=== PATIENT | male | born 1995 | race American Indian/Alaskan Native ===

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

== ENCOUNTER 2019-11-24 10:17 | Emergency (ER) | payer SELFPAY ==
[2019-11-24] MEDS ORDERED: ZIPRASIDONE MESYLATE 20 MG VIAL IM STA (10:30)
--- NOTE | 2019-11-24 10:40 | Emergency Department Report ---
ED Altered Mental Status HPI - General Chief Complaint: Altered Mental Status Stated Complaint: AMS PUI?: No Time Seen by Provider: 11/24/19 10:30 Source: patient Mode of arrival: Wheelchair Limitations: Altered Mental Status - History of Present Illness Initial Comments: Chief complaint: Strange behavior This is a 24-year-old male with history of polysubstance abuse who presents with altered mental status for the past 2 days. He told his family members that he "wants to get help.". He has had bizarre behavior constantly for the past 2 days. He has walked in the middle of the street. He is walked outside without clothes. He keeps repeating commands from his training. He is not sleeping. He told his family members that he uses marijuana, "pills" and "lean". He lives with several family members including his aunt and uncle who are bedside as well as his mother. Patient is currently altered. He states that "I am fine.". He is dazed. He keeps his eyes closed. He is restless. He gives limited information. MD Complaint: altered mental status -: Gradual, days(s) (2) Severity: moderate Consistency of Symptoms: waxing and waning Context: drug abuse Associated Symptoms: other ("I'm fine.") - Related Data Previous Rx's Medication Instructions Recorded Last Taken Type Ketorolac [Toradol] 10 mg PO Q6H PRN #10 tablet 11/20/16 Unknown Rx Cephalexin [Keflex] 500 mg PO TID #30 capsule 11/27/16 Unknown Rx Gabapentin [Neurontin] 100 mg PO Q8HR #30 capsule 12/03/16 Unknown Rx Ketorolac [Toradol] 10 mg PO Q6H PRN #20 tablet 12/03/16 Unknown Rx Neomycin/Bacitracin/Polymyxinb 14.2 gm TP BID #1 tube 12/03/16 Unknown Rx [Neosporin Antibiotic Ointment] Allergies Allergy/AdvReac Type Severity Reaction Status Date / Time amoxicillin trihydrate Allergy Rash Verified 11/30/16 13:36 [From Augmentin] azithromycin [From Zithromax] Allergy Rash Verified 11/30/16 13:36 ibuprofen [From Motrin] Allergy Rash Verified 11/30/16 13:36 Penicillins Allergy Rash Verified 11/30/16 13:36 potassium clavulanate Allergy Rash Verified 11/30/16 13:36 [From Augmentin] ED Review of Systems ROS: Stated complaint: AMS Other details as noted in HPI Comment: Unobtainable due to pts medical conditions (altered mental status) ED Past Medical Hx - Past Medical History Previous Medical History?: No Hx Hypertension: No Hx CVA: No - Surgical History Past Surgical History?: No - Social History Smoking Status: Unknown if ever smoked Substance Use Type: Marijuana, Non Opiate Pain, Other ("lean") - Medications Home Medications: Home Medications Medication Instructions Recorded Confirmed Last Taken Type Ketorolac [Toradol] 10 mg PO Q6H PRN #10 tablet 11/20/16 Unknown Rx Cephalexin [Keflex] 500 mg PO TID #30 capsule 11/27/16 Unknown Rx Gabapentin [Neurontin] 100 mg PO Q8HR #30 capsule 12/03/16 Unknown Rx Ketorolac [Toradol] 10 mg PO Q6H PRN #20 tablet 12/03/16 Unknown Rx Neomycin/Bacitracin/Polymyxinb 14.2 gm TP BID #1 tube 12/03/16 Unknown Rx [Neosporin Antibiotic Ointment] ED Physical Exam - General Limitations: Altered Mental Status General appearance: alert, other (patient is restless, continually trying to get out of stretcher, keeps eyes closed, grabs his aunt's hand, grabs the examiner's hand) - Head Head exam: Present: atraumatic, normocephalic - ENT ENT exam: Present: mucous membranes moist - Neck Neck exam: Present: normal inspection, full ROM - Respiratory Respiratory exam: Present: normal lung sounds bilaterally. Absent: respiratory distress, wheezes, rales, rhonchi - Cardiovascular Cardiovascular Exam: Present: regular rate, normal rhythm, normal heart sounds. Absent: systolic murmur, diastolic murmur, rubs, gallop - GI/Abdominal GI/Abdominal exam: Present: soft, normal bowel sounds. Absent: distended, tenderness, guarding, rebound - Rectal Rectal exam: Present: deferred - Extremities Exam Extremities exam: Present: normal inspection - Neurological Exam Neurological exam: Present: alert, other (oriented to name) - Psychiatric Psychiatric exam: Present: other (labile mood) - Skin Skin exam: Present: warm, dry, intact, normal color. Absent: rash ED Course Vital Signs 11/24/19 11/24/19 11/24/19 11:48 12:14 15:02 Temperature 97.2 F L Pulse Rate 82 82 Respiratory 18 15 18 Rate Blood Pressure 131/80 130/70 [Right] O2 Sat by Pulse 100 97 97 Oximetry 11/24/19 11/24/19 11/25/19 19:51 20:26 00:49 Temperature 97.4 F L 97.4 F L 97.4 F L Pulse Rate 80 70 83 Respiratory 18 18 18 Rate Blood Pressure 144/83 119/55 140/80 [Right] O2 Sat by Pulse 100 99 100 Oximetry 11/25/19 11/26/19 08:43 02:25 Temperature 98.0 F 97.8 F Pulse Rate 80 66 Respiratory 20 16 Rate Blood Pressure 129/74 124/81 [Right] O2 Sat by Pulse 100 98 Oximetry - Lab Data Result diagrams: 11/25/19 20:50 11/25/19 20:50 Lab Results 11/24/19 11/24/19 11/24/19 Range/Units 10:39 10:39 10:39 WBC 16.1 H (4.5-11.0) K/mm3 RBC 4.45 (3.65-5.03) M/mm3 Hgb 13.1 (11.8-15.2) gm/dl Hct 41.4 (35.5-45.6) % MCV 93 (84-94) fl MCH 30 (28-32) pg MCHC 32 (32-34) % RDW 13.4 (13.2-15.2) % Plt Count 163 (140-440) K/mm3 Lymph % (Auto) 6.8 L (13.4-35.0) % Person % (Auto) 8.5 H (0.0-7.3) % Eos % (Auto) 0.3 (0.0-4.3) % Baso % (Auto) 0.1 (0.0-1.8) % Lymph # 1.1 L (1.2-5.4) K/mm3 Person # 1.4 H (0.0-0.8) K/mm3 Eos # 0.0 (0.0-0.4) K/mm3 Baso # 0.0 (0.0-0.1) K/mm3 Seg Neutrophils % 84.3 H (40.0-70.0) % Seg Neutrophils # 13.5 H (1.8-7.7) K/mm3 PT (12.2-14.9) Sec. INR (0.87-1.13) VBG pH (7.320-7.420) Sodium 132 L (137-145) mmol/L Potassium 4.0 (3.6-5.0) mmol/L Chloride 94.9 L (98-107) mmol/L Carbon Dioxide 24 (22-30) mmol/L Anion Gap 17 mmol/L BUN 12 (9-20) mg/dL Creatinine 1.0 (0.8-1.5) mg/dL Estimated GFR > 60 ml/min BUN/Creatinine Ratio 12 % Glucose 84 (75-100) mg/dL Lactic Acid (0.7-2.0) mmol/L Calcium 9.5 (8.4-10.2) mg/dL Total Bilirubin 0.80 (0.1-1.2) mg/dL Direct Bilirubin (0-0.2) mg/dL Indirect Bilirubin mg/dL AST 33 (5-40) units/L ALT 16 (7-56) units/L Alkaline Phosphatase 63 (35-129) units/L Total Creatine Kinase (55-170) units/L CK-MB (CK-2) (0.0-4.0) ng/mL CK-MB (CK-2) Rel Index (0-4) Total Protein 8.0 (6.3-8.2) g/dL Albumin 4.5 (3.9-5) g/dL Albumin/Globulin Ratio 1.3 % Urine Color (Yellow) Urine Turbidity (Clear) Urine pH (5.0-7.0) Ur Specific Leonardo (1.003-1.030) Urine Protein (Negative) mg/dL Urine Glucose (UA) (Negative) mg/dL Urine Ketones (Negative) mg/dL Urine Blood (Negative) Urine Nitrite (Negative) Urine Bilirubin (Negative) Urine Urobilinogen (<2.0) mg/dL Ur Leukocyte Esterase (Negative) Urine WBC (Auto) (0.0-6.0) /HPF Urine RBC (Auto) (0.0-6.0) /HPF U Epithel Cells (Auto) (0-13.0) /HPF Urine Mucus /HPF Salicylates < 0.3 L (2.8-20.0) mg/dL Urine Opiates Screen Urine Methadone Screen Acetaminophen (10.0-30.0) ug/mL Ur Barbiturates Screen Ur Phencyclidine Scrn Ur Amphetamines Screen U Benzodiazepines Scrn Urine Cocaine Screen U Marijuana (THC) Screen Drugs of Abuse Note Plasma/Serum Alcohol (0-0.07) % 11/24/19 11/24/19 11/24/19 Range/Units 10:39 10:39 16:30 WBC (4.5-11.0) K/mm3 RBC (3.65-5.03) M/mm3 Hgb (11.8-15.2) gm/dl Hct (35.5-45.6) % MCV (84-94) fl MCH (28-32) pg MCHC (32-34) % RDW (13.2-15.2) % Plt Count (140-440) K/mm3 Lymph % (Auto) (13.4-35.0) % Person % (Auto) (0.0-7.3) % Eos % (Auto) (0.0-4.3) % Baso % (Auto) (0.0-1.8) % Lymph # (1.2-5.4) K/mm3 Person # (0.0-0.8) K/mm3 Eos # (0.0-0.4) K/mm3 Baso # (0.0-0.1) K/mm3 Seg Neutrophils % (40.0-70.0) % Seg Neutrophils # (1.8-7.7) K/mm3 PT (12.2-14.9) Sec. INR (0.87-1.13) VBG pH (7.320-7.420) Sodium (137-145) mmol/L Potassium (3.6-5.0) mmol/L Chloride (98-107) mmol/L Carbon Dioxide (22-30) mmol/L Anion Gap mmol/L BUN (9-20) mg/dL Creatinine (0.8-1.5) mg/dL Estimated GFR ml/min BUN/Creatinine Ratio % Glucose (75-100) mg/dL Lactic Acid (0.7-2.0) mmol/L Calcium (8.4-10.2) mg/dL Total Bilirubin (0.1-1.2) mg/dL Direct Bilirubin (0-0.2) mg/dL Indirect Bilirubin mg/dL AST (5-40) units/L ALT (7-56) units/L Alkaline Phosphatase (35-129) units/L Total Creatine Kinase (55-170) units/L CK-MB (CK-2) (0.0-4.0) ng/mL CK-MB (CK-2) Rel Index (0-4) Total Protein (6.3-8.2) g/dL Albumin (3.9-5) g/dL Albumin/Globulin Ratio % Urine Color Yellow (Yellow) Urine Turbidity Clear (Clear) Urine pH 5.0 (5.0-7.0) Ur Specific Leonardo 1.017 (1.003-1.030) Urine Protein <15 mg/dl (Negative) mg/dL Urine Glucose (UA) Neg (Negative) mg/dL Urine Ketones 80 (Negative) mg/dL Urine Blood Neg (Negative) Urine Nitrite Neg (Negative) Urine Bilirubin Neg (Negative) Urine Urobilinogen 2.0 (<2.0) mg/dL Ur Leukocyte Esterase Mod (Negative) Urine WBC (Auto) 100.0 H (0.0-6.0) /HPF Urine RBC (Auto) 3.0 (0.0-6.0) /HPF U Epithel Cells (Auto) < 1.0 (0-13.0) /HPF Urine Mucus 1+ /HPF Salicylates (2.8-20.0) mg/dL Urine Opiates Screen Urine Methadone Screen Acetaminophen 5.0 L (10.0-30.0) ug/mL Ur Barbiturates Screen Ur Phencyclidine Scrn Ur Amphetamines Screen U Benzodiazepines Scrn Urine Cocaine Screen U Marijuana (THC) Screen Drugs of Abuse Note Plasma/Serum Alcohol < 0.01 (0-0.07) % 11/24/19 11/25/19 11/25/19 Range/Units 16:30 20:50 20:50 WBC 5.7 (4.5-11.0) K/mm3 RBC 4.19 (3.65-5.03) M/mm3 Hgb 12.6 (11.8-15.2) gm/dl Hct 37.6 (35.5-45.6) % MCV 90 (84-94) fl MCH 30 (28-32) pg MCHC 34 (32-34) % RDW 12.8 L (13.2-15.2) % Plt Count 169 (140-440) K/mm3 Lymph % (Auto) 19.3 (13.4-35.0) % Person % (Auto) 9.4 H (0.0-7.3) % Eos % (Auto) 1.6 (0.0-4.3) % Baso % (Auto) 0.8 (0.0-1.8) % Lymph # 1.1 L (1.2-5.4) K/mm3 Person # 0.5 (0.0-0.8) K/mm3 Eos # 0.1 (0.0-0.4) K/mm3 Baso # 0.0 (0.0-0.1) K/mm3 Seg Neutrophils % 68.9 (40.0-70.0) % Seg Neutrophils # 4.0 (1.8-7.7) K/mm3 PT 14.9 (12.2-14.9) Sec. INR 1.15 H (0.87-1.13) VBG pH (7.320-7.420) Sodium (137-145) mmol/L Potassium (3.6-5.0) mmol/L Chloride (98-107) mmol/L Carbon Dioxide (22-30) mmol/L Anion Gap mmol/L BUN (9-20) mg/dL Creatinine (0.8-1.5) mg/dL Estimated GFR ml/min BUN/Creatinine Ratio % Glucose (75-100) mg/dL Lactic Acid (0.7-2.0) mmol/L Calcium (8.4-10.2) mg/dL Total Bilirubin (0.1-1.2) mg/dL Direct Bilirubin (0-0.2) mg/dL Indirect Bilirubin mg/dL AST (5-40) units/L ALT (7-56) units/L Alkaline Phosphatase (35-129) units/L Total Creatine Kinase (55-170) units/L CK-MB (CK-2) (0.0-4.0) ng/mL CK-MB (CK-2) Rel Index (0-4) Total Protein (6.3-8.2) g/dL Albumin (3.9-5) g/dL Albumin/Globulin Ratio % Urine Color (Yellow) Urine Turbidity (Clear) Urine pH (5.0-7.0) Ur Specific Leonardo (1.003-1.030) Urine Protein (Negative) mg/dL Urine Glucose (UA) (Negative) mg/dL Urine Ketones (Negative) mg/dL Urine Blood (Negative) Urine Nitrite (Negative) Urine Bilirubin (Negative) Urine Urobilinogen (<2.0) mg/dL Ur Leukocyte Esterase (Negative) Urine WBC (Auto) (0.0-6.0) /HPF Urine RBC (Auto) (0.0-6.0) /HPF U Epithel Cells (Auto) (0-13.0) /HPF Urine Mucus /HPF Salicylates (2.8-20.0) mg/dL Urine Opiates Screen Presumptive negative Urine Methadone Screen Presumptive negative Acetaminophen (10.0-30.0) ug/mL Ur Barbiturates Screen Presumptive negative Ur Phencyclidine Scrn Presumptive negative Ur Amphetamines Screen Presumptive negative U Benzodiazepines Scrn Presumptive negative Urine Cocaine Screen Presumptive negative U Marijuana (THC) Screen Presumptive positive Drugs of Abuse Note Disclamer Plasma/Serum Alcohol (0-0.07) % 11/25/19 11/25/19 11/25/19 Range/Units 20:50 20:50 20:50 WBC (4.5-11.0) K/mm3 RBC (3.65-5.03) M/mm3 Hgb (11.8-15.2) gm/dl Hct (35.5-45.6) % MCV (84-94) fl MCH (28-32) pg MCHC (32-34) % RDW (13.2-15.2) % Plt Count (140-440) K/mm3 Lymph % (Auto) (13.4-35.0) % Person % (Auto) (0.0-7.3) % Eos % (Auto) (0.0-4.3) % Baso % (Auto) (0.0-1.8) % Lymph # (1.2-5.4) K/mm3 Person # (0.0-0.8) K/mm3 Eos # (0.0-0.4) K/mm3 Baso # (0.0-0.1) K/mm3 Seg Neutrophils % (40.0-70.0) % Seg Neutrophils # (1.8-7.7) K/mm3 PT (12.2-14.9) Sec. INR (0.87-1.13) VBG pH 7.369 (7.320-7.420) Sodium 137 (137-145) mmol/L Potassium 3.6 (3.6-5.0) mmol/L Chloride 99.5 (98-107) mmol/L Carbon Dioxide 25 (22-30) mmol/L Anion Gap 16 mmol/L BUN 9 (9-20) mg/dL Creatinine 0.8 (0.8-1.5) mg/dL Estimated GFR > 60 ml/min BUN/Creatinine Ratio 11 % Glucose 89 (75-100) mg/dL Lactic Acid 0.90 (0.7-2.0) mmol/L Calcium 9.1 (8.4-10.2) mg/dL Total Bilirubin 0.50 (0.1-1.2) mg/dL Direct Bilirubin < 0.2 (0-0.2) mg/dL Indirect Bilirubin 0.3 mg/dL AST 24 (5-40) units/L ALT 14 (7-56) units/L Alkaline Phosphatase 51 (35-129) units/L Total Creatine Kinase 655 H (55-170) units/L CK-MB (CK-2) 5.7 H (0.0-4.0) ng/mL CK-MB (CK-2) Rel Index 0.8 (0-4) Total Protein 7.8 (6.3-8.2) g/dL Albumin 4.1 (3.9-5) g/dL Albumin/Globulin Ratio 1.1 % Urine Color (Yellow) Urine Turbidity (Clear) Urine pH (5.0-7.0) Ur Specific Leonardo (1.003-1.030) Urine Protein (Negative) mg/dL Urine Glucose (UA) (Negative) mg/dL Urine Ketones (Negative) mg/dL Urine Blood (Negative) Urine Nitrite (Negative) Urine Bilirubin (Negative) Urine Urobilinogen (<2.0) mg/dL Ur Leukocyte Esterase (Negative) Urine WBC (Auto) (0.0-6.0) /HPF Urine RBC (Auto) (0.0-6.0) /HPF U Epithel Cells (Auto) (0-13.0) /HPF Urine Mucus /HPF Salicylates (2.8-20.0) mg/dL Urine Opiates Screen Urine Methadone Screen Acetaminophen (10.0-30.0) ug/mL Ur Barbiturates Screen Ur Phencyclidine Scrn Ur Amphetamines Screen U Benzodiazepines Scrn Urine Cocaine Screen U Marijuana (THC) Screen Drugs of Abuse Note Plasma/Serum Alcohol (0-0.07) % - Medical Decision Making Altered mental status: Current consideration -acute intoxication of illicit drugs Due to slightly decreased level of consciousness and erratic behavior, I do suspect polysubstance abuse in lieu of intracranial process such as trauma or neoplasm. I do not suspect acute psychiatric process such as schizophrenia or bipolar disorder. Patient's level consciousness indicates that patient has taken a sedative agent. Patient required chemical restraint for his safety and the safety of others. He received 10 mg IM Geodon for chemical restraint. I reevaluated patient after he awakened from chemical sedation. He states that "I feel much better. I just want to get out of here." He stated that he smoked a few cigarettes. He otherwise he will not admit to substance abuse. I do not suspect trauma or psychiatric mental illness. Awaiting psychiatric consultation for further treatment and stabilization. I reviewed labs. UDS + for marijuana. Nonspecific leukocytosis without fever or SIRS. asymptomatic pyuria on UA. He denies dysuria or urethral discharge. I will treat for UTI with nitrofurantoin. He is medically clear for psychiatric care. Currently patient is calm, cooperative. He is answering questions appropriately. I reevaluated Lauro on 11/26/2019 3:33 PM. I have reviewed CT head results. WBC is now normal. CT head without acute process. Patient is alert and oriented. He is hyperactive. He is dancing around room. He has labile affect. He is medically clear for psychiatric care. DDx: drug induced psychosis, schizophrenia Critical care attestation.: If time is entered above; I have spent that time in minutes in the direct care of this critically ill patient, excluding procedure time. ED Disposition Clinical Impression: Drug intoxication with delirium, Polysubstance abuse Condition: Stable Referrals: PRIMARY CARE, [Primary Care Provider] - 3-5 Days
[2019-11-24] MEDS ORDERED: WATER FOR INJ Sterile (PF) 10 ML ONE (10:52)
[2019-11-24 10:56] LABS: Basophils % (Auto) 0.1 % (0.0-1.8); Eosinophils % (Auto) 0.3 % (0.0-4.3); Hematocrit 41.4 % (35.5-45.6); Hemoglobin 13.1 gm/dl (11.8-15.2); Lymphocytes # (Auto) 1.1 K/mm3 (1.2-5.4); Lymphocytes % (Auto) 6.8 % (13.4-35.0); Mean Corpuscular HGB Conc 32 % (32-34); Mean Corpuscular Volume 93 fl (84-94); Monocytes # (Auto) 1.4 K/mm3 (0.0-0.8); Monocytes % (Auto) 8.5 % (0.0-7.3); Platelet Count 163 K/mm3 (140-440); Red Blood Count 4.45 M/mm3 (3.65-5.03); Red Cell Distribution Width 13.4 % (13.2-15.2)
[2019-11-24 11:17] LABS: Alanine Aminotransferase 16 units/L (7-56); Albumin 4.5 g/dL (3.9-5); BUN/Creatinine Ratio 12; Blood Urea Nitrogen 12 mg/dL (9-20); Calcium 9.5 mg/dL (8.4-10.2); Hemolysis Index 32
[2019-11-24 17:54] LABS: Bilirubin,Urine NEG (Negative); Blood,Urine NEG (Negative); Color,Urine Yellow (Yellow); Mucus,Urine 1+ /HPF; Protein,Urine <15 mg/dL mg/dL (Negative)
[2019-11-24 17:56] LABS: Amphetamine Screen,Urine PRESUMPTIVE NEGATIVE; Benzodiazepines Screen,Urine PRESUMPTIVE NEGATIVE; Cannabinoid Screen,Urine PRESUMPTIVE POSITIVE; Cocaine Screen,Urine PRESUMPTIVE NEGATIVE; Methadone Screen,Urine PRESUMPTIVE NEGATIVE; Opiate Screen,Urine PRESUMPTIVE NEGATIVE
[2019-11-24] MEDS ORDERED: NICOTINE 14 MG/24 HR PATCH TD ONE (18:00)
[2019-11-24] MEDS ORDERED: SODIUM CHLORIDE 0.9% 1000 ML 1,000 ML IV ONE (20:14)
[2019-11-24] MEDS: NITROFURANTOIN MONOHYD/M-CRYST 100 MG CAP PO SCH ×2 (20:45→21:32)
[2019-11-24] MEDS ORDERED: D5W/0.9% NACL 1,000 ML IV SCH ×2 (21:00)
[2019-11-25] MEDS: NITROFURANTOIN MONOHYD/M-CRYST 100 MG CAP PO SCH (09:41)
--- NOTE | 2019-11-25 10:59 | Consultation ---
History of Present Illness - Reason for Consult Consult date: 11/25/19 Reason for consult: MHE Requesting physician: MARCO PLASENCIA - Chief Complaint Chief complaint: AMS - History of Present Psychiatric Illness Per ED Provider: This is a 24-year-old male with history of polysubstance abuse who presents with altered mental status for the past 2 days. He told his family members that he "wants to get help.". He has had bizarre behavior constantly for the past 2 days. He has walked in the middle of the street. He is walked outside without clothes. He keeps repeating commands from his training. He is not sleeping. He told his family members that he uses marijuana, "pills" and "lean". He lives with several family members including his aunt and uncle who are bedside as well as his mother. Patient is currently altered. He states that "I am fine.". He is dazed. He keeps his eyes closed. He is restless. He gives limited information. Per MHA: Pt is a 24 year old AA male; Per triage note, "Pt. presents via pr ivate auto with family for suspected drug overdose. Pt. suspected to have smoked "something" and taken "lean." Pt. altered and uncooperative in triage. Pt. eyes closed. Pt resides with mother, uncle and aunt.Pt reported to this concrete bucket hooker THC use (regularly); family and pt reported to ED provider using, "lean, some pills" and THC. Family reports that the pt's behaviors have been abnormal the past few days ("Zombie state," acting bizarrely, wandering from the house placing himself in danger; family found pt, disoriented/disorganized thoughts). Family reports that the pt usually smokes weed, "like normal, and is just calm." Family reports pt did not graduate from high school or finish his program and has not been able to hold a steady job; family reports most likely due to the drug use. Pt denies any thoughts or plans to harm others. Family reports that the pt has made no statements or self-harm or desire to and has made no gestures intending to harm self (past or present). Pt denies any thoughts or plans to harm others. Pt was irritable and cursing during assessment; however, pt was not making any threats to harm others. Pt is usually more cooperative and easily e ngages with others. Pt is displaying evidence of thought disorder; pt told this concrete bucket hooker his name and date of . Pt could not answer his age, the current month or who the President is. (Unable to assess if the pt is choosing not to answer as he seems irritable and angry wanting to go home or if he does not know the correct answer as he appears to doze off and on and is disoriented). Pt has poor concentration, poor attention and poor memory. Pt has loud, slurred speech.Family reports that the pt has no mental health history (treatment or diagnosis)however, mother reported that the pt was on a 504 plan for ADHD in high school.. Mother reports that there is no family history or depression, bipolar or schizophrenia. PSYCH HPI Attempt was made at 9:30 AM, nurse says pt was taken to CT, I returned at noon to evaluate pt and nurse informed me patient was discharged by ER Provider. PAST PSYCHIATRIC HISTORY Diagnoses: Suicide attempts or Self-harm behavior: Prior psychiatric hospitalizations: Substance Abuse history: Previous psychiatric medications tried: Outpatient treatment: PAST MEDICAL HISTORY: Family Psychiatric History: None reported or documented SOCIAL HISTORY not available RECOMMENDATIONS Pt was discharged Medications and Allergies Allergies Allergy/AdvReac Type Severity Reaction Status Date / Time amoxicillin trihydrate Allergy Rash Verified 11/30/16 13:36 [From Augmentin] azithromycin [From Zithromax] Allergy Rash Verified 11/30/16 13:36 ibuprofen [From Motrin] Allergy Rash Verified 11/30/16 13:36 Penicillins Allergy Rash Verified 11/30/16 13:36 potassium clavulanate Allergy Rash Verified 11/30/16 13:36 [From Augmentin] Home Medications Medication Instructions Recorded Confirmed Last Taken Type Ketorolac [Toradol] 10 mg PO Q6H PRN #10 tablet 11/20/16 Unknown Rx Cephalexin [Keflex] 500 mg PO TID #30 capsule 11/27/16 Unknown Rx Gabapentin [Neurontin] 100 mg PO Q8HR #30 capsule 12/03/16 Unknown Rx Ketorolac [Toradol] 10 mg PO Q6H PRN #20 tablet 12/03/16 Unknown Rx Neomycin/Bacitracin/Polymyxinb 14.2 gm TP BID #1 tube 12/03/16 Unknown Rx [Neosporin Antibiotic Ointment] Active Meds: Active Medications Dextrose/Sodium Chloride (D5ns) 1,000 mls @ 999 mls/hr IV DIRECT EDVIN Last Admin: 11/24/19 22:35 Dose: 999 mls/hr Documented by: Dextrose/Sodium Chloride (D5ns) 1,000 mls @ 999 mls/hr IV DIRECT EDVIN Nitrofurantoin Macrocrystals (Macrobid) 100 mg PO BID EDVIN Last Admin: 11/25/19 09:41 Dose: 100 mg Documented by: Mental Status Exam - Vital signs Last Vital Signs Temp 98.0 F 11/25/19 08:43 Pulse 80 11/25/19 08:43 Resp 20 11/25/19 08:43 BP 129/74 11/25/19 08:43 Pulse Ox 100 11/25/19 08:43 Results Result Diagrams: 11/24/19 10:39 11/24/19 10:39 Abnormal lab results 11/24/19 11/24/19 11/24/19 Range/Units 10:39 10:39 10:39 WBC 16.1 H (4.5-11.0) K/mm3 Lymph % (Auto) 6.8 L (13.4-35.0) % [place] % (Auto) 8.5 H (0.0-7.3) % Lymph # 1.1 L (1.2-5.4) K/mm3 [place] # 1.4 H (0.0-0.8) K/mm3 Seg Neutrophils % 84.3 H (40.0-70.0) % Seg Neutrophils # 13.5 H (1.8-7.7) K/mm3 Sodium 132 L (137-145) mmol/L Chloride 94.9 L (98-107) mmol/L Urine WBC (Auto) (0.0-6.0) /HPF Salicylates < 0.3 L (2.8-20.0) mg/dL Acetaminophen (10.0-30.0) ug/mL 11/24/19 11/24/19 Range/Units 10:39 16:30 WBC (4.5-11.0) K/mm3 Lymph % (Auto) (13.4-35.0) % [place] % (Auto) (0.0-7.3) % Lymph # (1.2-5.4) K/mm3 [place] # (0.0-0.8) K/mm3 Seg Neutrophils % (40.0-70.0) % Seg Neutrophils # (1.8-7.7) K/mm3 Sodium (137-145) mmol/L Chloride (98-107) mmol/L Urine WBC (Auto) 100.0 H (0.0-6.0) /HPF Salicylates (2.8-20.0) mg/dL Acetaminophen 5.0 L (10.0-30.0) ug/mL All other labs normal.
[2019-11-25] MEDS ORDERED: ZIPRASIDONE MESYLATE 20 MG VIAL IM ONE (18:55)
[2019-11-25] MEDS ORDERED: SODIUM CHLORIDE 0.9% 500 ML 500 ML IV ONE (18:56)
[2019-11-25] MEDS ORDERED: LORazepam 2 MG/ML VIAL IM ONE (19:01)
--- NOTE | 2019-11-25 19:05 | Emergency Department Report ---
Blank Doc - Documentation Documentation: This patient was brought to my attention by the nurse. He apparently has an ex cited delirium. Review of his previous database indicates he has an elevated white blood cell count and a UTI. I see that he was placed on Macrobid. I do not see that he had a prior psychiatric history. Apparently the mental health provider accidentally infused him with a another patient after he was moved to another room. The nurse informs me that the mental health consult cannot be done until tomorrow. He also informed me that the one on this patient's record is indeed on another patient. I did examine the patient. He is standing up at the door in seclusion. He essentially making crowing noises and has removed his shirt. He obviously does have an excited delirium. His drug screen was only positive for marijuana. Diagnostic impression Excited delirium Leukocytosis UTI Plan Sepsis screening. Chemical sedation. Since the patient apparently is having a new onset psychosis, he does have indications for CT imaging of his head. This is ordered as well. He is not medically clear at this juncture. I will execute a 1013.
--- NOTE | 2019-11-25 21:04 | XRay Report ---
CHEST 1 VIEW, 11/25/2019 8:31 PM CLINICAL INFORMATION/INDICATION: Shortness of breath COMPARISON: None FINDINGS: SUPPORT DEVICES: None. HEART: The cardiac silhouette is normal in size. LUNGS/PLEURA: The lungs are clear of focal airspace disease or significant pleural effusion. ADDITIONAL FINDINGS: No additional acute findings. IMPRESSION: 1. No evidence of acute cardiopulmonary process. Signer Name: Lina Wilcox MD Signed: 11/25/2019 8:59 PM Workstation Name: [id number]
[2019-11-25 21:06] LABS: Basophils % (Auto) 0.8 % (0.0-1.8); Eosinophils # (Auto) 0.1 K/mm3 (0.0-0.4); Eosinophils % (Auto) 1.6 % (0.0-4.3); Hematocrit 37.6 % (35.5-45.6); Hemoglobin 12.6 gm/dl (11.8-15.2); Lymphocytes # (Auto) 1.1 K/mm3 (1.2-5.4); Lymphocytes % (Auto) 19.3 % (13.4-35.0); Mean Corpuscular HGB Conc 34 % (32-34); Mean Corpuscular Volume 90 fl (84-94); Monocytes # (Auto) 0.5 K/mm3 (0.0-0.8); Monocytes % (Auto) 9.4 % (0.0-7.3); Platelet Count 169 K/mm3 (140-440); Red Blood Count 4.19 M/mm3 (3.65-5.03); Red Cell Distribution Width 12.8 % (13.2-15.2)
[2019-11-25 21:16] LABS: INR 1.15 (0.87-1.13)
[2019-11-25 21:25] LABS: Creatine Kinase MB 5.7 ng/mL (0.0-4.0)
[2019-11-25 21:26] LABS: Alanine Aminotransferase 14 units/L (7-56); Albumin 4.1 g/dL (3.9-5); BUN/Creatinine Ratio 11; Blood Urea Nitrogen 9 mg/dL (9-20); Calcium 9.1 mg/dL (8.4-10.2); Hemolysis Index 6
[2019-11-25 21:34] LABS: Bilirubin,Direct < 0.2 mg/dL (0-0.2)
[2019-11-26] MEDS: NITROFURANTOIN MONOHYD/M-CRYST 100 MG CAP PO SCH ×2 (05:33→13:37)
--- NOTE | 2019-11-26 05:41 | Cat Scan Report ---
CT HEAD WITHOUT CONTRAST INDICATION : Altered mental status. TECHNIQUE: Axial, coronal and sagittal CT imaging was performed from the skull apex through the skul l base without contrast. All CT scans at this location are performed using CT dose reduction for ALA RA by means of automated exposure control. COMPARISON: None available. FINDINGS: PARENCHYMA: No mass, midline shift, hemorrhage, extraaxial collection or acute territorial infarctio n. VENTRICLES: Symmetric and normal in size. SOFT TISSUES: No significant abnormality of the included soft tissues/orbits. BONES: No acute osseous abnormality. SINUSES: No significant abnormality. ADDITIONAL FINDINGS: None. IMPRESSION: 1. No acute intracranial abnormality. Signer Name: Graham Serrato MD Signed: 11/26/2019 5:37 AM Workstation Name: [id number]
--- NOTE | 2019-11-26 12:16 | Consultation ---
History of Present Illness - Reason for Consult Consult date: 11/26/19 Reason for consult: MHE Requesting physician: MARCO PLASENCIA - Chief Complaint Chief complaint: AMS - History of Present Psychiatric Illness Per ED Provider: This is a 24-year-old male with history of polysubstance abuse who presents with altered mental status for the past 2 days. He told his family members that he "wants to get help.". He has had bizarre behavior constantly for the past 2 days. He has walked in the middle of the street. He is walked outside without clothes. He keeps repeating commands from his training. He is not sleeping. He told his family members that he uses marijuana, "pills" and "lean". He lives with several family members including his aunt and uncle who are bedside as well as his mother. Patient is currently altered. He states that "I am fine.". He is dazed. He keeps his eyes closed. He is restless. He gives limited information. Per MHA: Pt is a 24 year old AA male; Per triage note, "Pt. presents via pr ivate auto with family for suspected drug overdose. Pt. suspected to have smoked "something" and taken "lean." Pt. altered and uncooperative in triage. Pt. eyes closed. Pt resides with mother, uncle and aunt.Pt reported to this associate manager THC use (regularly); family and pt reported to ED provider using, "lean, some pills" and THC. Family reports that the pt's behaviors have been abnormal the past few days ("Zombie state," acting bizarrely, wandering from the house placing himself in danger; family found pt, disoriented/disorganized thoughts). Family reports that the pt usually smokes weed, "like normal, and is just calm." Family reports pt did not graduate from high school or finish his program and has not been able to hold a steady job; family reports most likely due to the drug use. Pt denies any thoughts or plans to harm others. Family reports that the pt has made no statements or self-harm or desire to and has made no gestures intending to harm self (past or present). Pt denies any thoughts or plans to harm others. Pt was irritable and cursing during assessment; however, pt was not making any threats to harm others. Pt is usually more cooperative and easily e ngages with others. Pt is displaying evidence of thought disorder; pt told this associate manager his name and date of . Pt could not answer his age, the current month or who the President is. (Unable to assess if the pt is choosing not to answer as he seems irritable and angry wanting to go home or if he does not know the correct answer as he appears to doze off and on and is disoriented). Pt has poor concentration, poor attention and poor memory. Pt has loud, slurred speech.Family reports that the pt has no mental health history (treatment or diagnosis)however, mother reported that the pt was on a 504 plan for ADHD in high school.. Mother reports that there is no family history or depression, bipolar or schizophrenia. PSYCH HPI Patient is a 24-year-old -Romanian male with no significant past psychiatric history, presented to ER for abnormal behavior. Patient seen in isolation today and attempt was made to interview patient patient responded to his name but became selectively mute to further questions making hand gestures with 3 fingers. Security said hang gestures familiar with gang like interpretation for "blood" PAST PSYCHIATRIC HISTORY Diagnoses: unknown Suicide attempts or Self-harm behavior: unknown Prior psychiatric hospitalizations: none reported Substance Abuse history: Deborah Previous psychiatric medications tried: None reported Outpatient treatment: none PAST MEDICAL HISTORY: none reported Family Psychiatric History: None reported or documented SOCIAL HISTORY Marital Status: single Living Arrangements: with family Employment Status: unknown Access to guns/weapons: none reported Education: unknown History of Abuse: unknown Legal History: unknown REVIEW OF SYSTEMS ROS cannot be reliably obtained from the patient due to his AMS MENTAL STATUS EXAMINATION General Appearance and Behavior: Age appropriate, good hygiene, poor eye contact, uncooperative irritable with questioning. Cooperation: withdrawn Psychomotor Behavior: Psychomotor agitation Mood: unknown Affect and affective range: irritable Thought Process: Perseverative Thought Content: Illogical, Grandiose, Speech: blocked Intellectual Functioning: Average Suicidal Ideation: unknown Homicidal Ideation: unknown Impulse Control: Impaired Insight and Judgment: Impaired Memory: unknown Attention: Divided attention impaired Orientation: Alert RECOMMENDATIONS Reviewed notes, ER Provider concerned about UTI induced delirium given elevated WBCs, bt provider not recommend inpatient medical admission and pt only put on Macrobid. I do not believe patient is delirious due to underlying medical re asons such as UTI. Repeat CBC was normal. Will manage psychiatrically with medication at this moment. Started on Olanzapine. MEDICATIONS: Risks, benefits and alternatives of medications discussed with the patient, questions answered and consent obtained from patient. PSYCHOTHERAPY: Supportive psychotherapy provided MEDICAL: Per primary team DELIRIUM PRECAUTIONS: Please re-orient patient frequently, keep lights on during the day, and minimize benzodiazepines and opiates as these medications could worsen patient's confusion. MEDICATION SPECIALIST: DISPOSITION: Recommends acute inpatient psychiatric hospitalization at this time LEGAL STATUS: 101 FOLLOW-UP: Will follow Thank you for the consult. Please contact with any questions and/or concerns. Medications and Allergies Allergies Allergy/AdvReac Type Severity Reaction Status Date / Time amoxicillin trihydrate Allergy Rash Verified 11/30/16 13:36 [From Augmentin] azithromycin [From Zithromax] Allergy Rash Verified 11/30/16 13:36 ibuprofen [From Motrin] Allergy Rash Verified 11/30/16 13:36 Penicillins Allergy Rash Verified 11/30/16 13:36 potassium clavulanate Allergy Rash Verified 11/30/16 13:36 [From Augmentin] Home Medications Medication Instructions Recorded Confirmed Last Taken Type Ketorolac [Toradol] 10 mg PO Q6H PRN #10 tablet 11/20/16 Unknown Rx Cephalexin [Keflex] 500 mg PO TID #30 capsule 11/27/16 Unknown Rx Gabapentin [Neurontin] 100 mg PO Q8HR #30 capsule 12/03/16 Unknown Rx Ketorolac [Toradol] 10 mg PO Q6H PRN #20 tablet 12/03/16 Unknown Rx Neomycin/Bacitracin/Polymyxinb 14.2 gm TP BID #1 tube 12/03/16 Unknown Rx [Neosporin Antibiotic Ointment] Active Meds: Active Medications Dextrose/Sodium Chloride (D5ns) 1,000 mls @ 999 mls/hr IV DIRECT EDVIN Last Admin: 11/24/19 22:35 Dose: 999 mls/hr Documented by: Dextrose/Sodium Chloride (D5ns) 1,000 mls @ 999 mls/hr IV DIRECT EDVIN Nitrofurantoin Macrocrystals (Macrobid) 100 mg PO BID EDVIN Last Admin: 11/26/19 05:33 Dose: Not Given Documented by: Mental Status Exam - Vital signs Last Vital Signs Temp 97.8 F 11/26/19 02:25 Pulse 66 11/26/19 02:25 Resp 16 11/26/19 02:25 BP 124/81 11/26/19 02:25 Pulse Ox 98 11/26/19 02:25 Results Result Diagrams: 11/25/19 20:50 11/25/19 20:50 Abnormal lab results 11/25/19 11/25/19 11/25/19 Range/Units 20:50 20:50 20:50 RDW 12.8 L (13.2-15.2) % [place] % (Auto) 9.4 H (0.0-7.3) % Lymph # 1.1 L (1.2-5.4) K/mm3 INR 1.15 H (0.87-1.13) Total Creatine Kinase 655 H (55-170) units/L CK-MB (CK-2) 5.7 H (0.0-4.0) ng/mL All other labs normal.
--- NOTE | 2019-11-26 15:36 | Emergency Department Report ---
Blank Doc - Documentation Documentation: I reevaluated Lauro on 11/26/2019 3:33 PM. I have reviewed CT head results. WBC is now normal. CT head without acute process. Patient is alert and oriented. He is hyperactive. He is dancing around room. He has labile affect. He is medically clear for psychiatric care. DDx: drug induced psychosis, schizophrenia
[2019-11-27] MEDS: NITROFURANTOIN MONOHYD/M-CRYST 100 MG CAP PO SCH ×2 (00:34→11:30)
[2019-11-27] MEDS ORDERED: ZIPRASIDONE MESYLATE 20 MG VIAL IM ONE (05:21)
--- NOTE | 2019-11-27 05:21 | Emergency Department Report ---
Blank Doc - Documentation Documentation: Patient is alert and agitated and continues to bang on the door and making ani mal noises. Pt is unable to answer questions, have a conversation or reliably follow commands. Patient continues to exhibit signs of excited delirium. IM antipsychotic ordered at this time.
--- NOTE | 2019-11-27 07:34 | Progress Note ---
Subjective - Reason for Consult Consult date: 11/27/19 Reason for consult: MHE Requesting physician: JULIO REDD - Chief Complaint Chief complaint: PSYCH HPI Patient seen in room in seclusion, not responding to verbal stimuli, nurse reports pt had not eaten since last night. Vitals checked in my presence and they were stable. MENTAL STATUS EXAMINATION General Appearance and Behavior: Age appropriate, fair hygiene, poor eye contact, uncooperative irritable with questioning. Cooperation: withdrawn Psychomotor Behavior: Psychomotor retardation Mood: unknown Affect and affective range:flat Thought Process: Perseverative Thought Content: Illogical, Grandiose, Speech: blocked Intellectual Functioning: Average Suicidal Ideation: unknown Homicidal Ideation: unknown Impulse Control: Impaired Insight and Judgment: Impaired Memory: unknown Attention: Divided attention impaired Orientation: Alert RECOMMENDATIONS WIll start ativan challenge Started on Olanzapine yesterday but MAR shows medication was never given. MEDICATIONS: Risks, benefits and alternatives of medications discussed with the patient, questions answered and consent obtained from patient. PSYCHOTHERAPY: Supportive psychotherapy provided MEDICAL: Per primary team DELIRIUM PRECAUTIONS: Please re-orient patient frequently, keep lights on during the day, and minimize benzodiazepines and opiates as these medications could worsen patient's confusion. GLOBAL COMPENSATION ANALYST: DISPOSITION: Recommends acute inpatient psychiatric hospitalization at this time LEGAL STATUS: 1013 FOLLOW-UP: Will follow Thank you for the consult. Please contact with any questions and/or concerns. Mental Status Exam - Vital signs Last Vital Signs Temp 97.8 F 11/27/19 02:02 Pulse 85 11/27/19 02:02 Resp 22 11/27/19 02:02 BP 132/71 11/27/19 02:02 Pulse Ox 96 11/27/19 02:02
[2019-11-27] MEDS ORDERED: LORazepam 2 MG/ML VIAL ONE (10:09)
[2019-11-27] MEDS: LORazepam 2 MG/ML VIAL IM SCH ×2 (19:40→19:59)
[2019-11-27] MEDS ORDERED: LORazepam 2 MG/ML VIAL IM PRN (20:02)
--- NOTE | 2019-11-27 20:07 | Event Note ---
Date: 11/27/19 [id number] evaluation performed. Nursing team informs me that the patient has a heart rate of 150, likely secondary to agitation. The patient is awake, standing up, and hiding himself in the corner behind a pad . He has not spiked a fever, and otherwise, vital signs have been unremarkable. This is most likely psychomotor agitation. As needed haloperidol and Ativan ordered. Awaiting psychiatric placement.
[2019-11-27] MEDS: HALOPERIDOL LACTATE 5 MG/1 ML INJ IM PRN (20:12)
[2019-11-28] MEDS: LORazepam 2 MG/ML VIAL IM SCH ×3 (00:15→17:11)
[2019-11-28] MEDS: NITROFURANTOIN MONOHYD/M-CRYST 100 MG CAP PO SCH ×2 (00:16→09:35)
--- NOTE | 2019-11-28 12:37 | Progress Note ---
Subjective - Reason for Consult Consult date: 11/28/19 Reason for consult: MHE Requesting physician: SUKHDEEP MURRIETA - Chief Complaint Chief complaint: PSYCH HPI Patient still in seclusion, laying down, normal breathing pattern noted but stil l not audible. MENTAL STATUS EXAMINATION General Appearance and Behavior: Age appropriate, fair hygiene, poor eye contact, uncooperative irritable with questioning. Cooperation: withdrawn Psychomotor Behavior: Psychomotor retardation Mood: unknown Affect and affective range:flat Thought Process: Perseverative Thought Content: unaccessible Speech: blocked Intellectual Functioning: Average Suicidal Ideation: unknown Homicidal Ideation: unknown Impulse Control: Impaired Insight and Judgment: Impaired Memory: unknown Attention: Divided attention impaired Orientation: Alert RECOMMENDATIONS Will start ativan challenge Started on Olanzapine yesterday but MAR shows medication was never given, rules out antipsychotic induced EPS. MEDICATIONS: Risks, benefits and alternatives of medications discussed with the patient, questions answered and consent obtained from patient. PSYCHOTHERAPY: Supportive psychotherapy provided MEDICAL: Per primary team DELIRIUM PRECAUTIONS: Please re-orient patient frequently, keep lights on during the day, and minimize benzodiazepines and opiates as these medications could worsen patient's confusion. SHEAR OPERATOR: DISPOSITION: Recommends acute inpatient psychiatric hospitalization at this time LEGAL STATUS: 1013 FOLLOW-UP: Will follow Thank you for the consult. Please contact with any questions and/or concerns. Mental Status Exam - Vital signs Last Vital Signs Temp 97.8 F 11/28/19 01:30 Pulse 69 11/28/19 01:30 Resp 16 11/28/19 01:30 BP 138/70 11/28/19 01:30 Pulse Ox 96 11/28/19 01:30
--- NOTE | 2019-11-28 13:05 | Emergency Department Report ---
Blank Doc - Documentation Documentation: Patient is not showing any signs of excited delirium at this time. Usually as sociated with stimulants, such as cocaine, patient's UDS only positive for marijuana. Vitals are currently normal, patient is not hyperthermic or tachycardic. At this time he is not agitated, violent, or requiring any physical restraint. Patient is not in distress. He is calm, sitting in room. His affect is flat, but he responds appropriately, speech is clear. Patient is currently pending placement.
[2019-11-29] MEDS: NITROFURANTOIN MONOHYD/M-CRYST 100 MG CAP PO SCH ×2 (04:43→11:30)
[2019-11-29] MEDS: HALOPERIDOL LACTATE 5 MG/1 ML INJ IM PRN (04:44)
--- NOTE | 2019-11-29 10:41 | Progress Note ---
Subjective - Reason for Consult Consult date: 11/29/19 Reason for consult: MHE Requesting physician: MILENA POSEY - Chief Complaint Chief complaint: PSYCH HPI Patient out of seclusion, verbally respond to stimuli, says he is feeling citlali r, pt was instructed to get up and he did, I told pt to eat his food, pt walked up to it and opened his juice and drank it . MENTAL STATUS EXAMINATION General Appearance and Behavior: Age appropriate, improved hygiene, poor eye contact, cooperative polite with questioning. Cooperation: withdrawn Psychomotor Behavior: Normal psychomotor Mood: good Affect and affective range:flat Thought Process: Logical Thought Content: within reality Speech: slow but clear and audible Intellectual Functioning: Average Suicidal Ideation: none Homicidal Ideation: none Impulse Control: Impaired Insight and Judgment: Impaired Memory: unknown Attention: retained Orientation: Alert RECOMMENDATIONS Will start ativan challenge Started on Olanzapine yesterday but MAR shows medication was never given, rules out antipsychotics induced EPS. MEDICATIONS: Risks, benefits and alternatives of medications discussed with the patient, questions answered and consent obtained from patient. PSYCHOTHERAPY: Supportive psychotherapy provided MEDICAL: Per primary team DELIRIUM PRECAUTIONS: Please re-orient patient frequently, keep lights on during the day, and minimize benzodiazepines and opiates as these medications could worsen patient's confusion. LEASING ASSOCIATE: DISPOSITION: Recommends acute inpatient psychiatric hospitalization at this time LEGAL STATUS: 1013 FOLLOW-UP: Will follow Thank you for the consult. Please contact with any questions and/or concerns. Mental Status Exam - Vital signs Last Vital Signs Temp 98.0 F 11/29/19 08:01 Pulse 78 11/29/19 08:01 Resp 20 11/29/19 08:01 BP 127/87 11/29/19 08:01 Pulse Ox 98 11/29/19 08:01
[2019-11-29] MEDS: LORazepam 2 MG/ML VIAL IM SCH ×4 (11:29→18:52)
[2019-11-30] MEDS: NITROFURANTOIN MONOHYD/M-CRYST 100 MG CAP PO SCH (00:11)
[2019-11-30 09:03] VITALS: BP 123/78
== END 2019-11-30 09:52 ==
LOC: EEVIPCON 10:17 → ED 10:17
DX: F19.921 Other psychoactive substance use, unspecified with intoxication with delirium (principal); R41.82 Altered mental status, unspecified; F12.90 Cannabis use, unspecified, uncomplicated; Z88.8 Allergy status to other drugs, medicaments and biological substances; Z88.0 Allergy status to penicillin; Z79.899 Other long term (current) drug therapy
CPT/HCPCS: 36415; 70450; 71045; 80048; 80053; 80076; 80307; 81001; 82140; 82550; 82553; 82805; 82962; 85025; 85610; 87040; 87086; 96360; 96361; 96372; 99285; J1630; J2060; J3486; J7030; J7042; 80320; G0480

== ENCOUNTER 2019-12-16 17:26 | Inpatient (IN) | payer OTHER ==
[2019-12-16] MEDS ORDERED: diphenhydrAMINE 50 MG/ML VIAL IV ONE (21:17)
--- NOTE | 2019-12-16 21:35 | Emergency Department Report ---
HPI - General Chief Complaint: Medical Clearance Time Seen by Provider: 12/16/19 21:03 - HPI HPI: Room 8 The patient is a 24-year-old male present with a chief complaint of stiffness. Patient was recently diagnosed with schizophrenia and started on Haldol. Mother states 1 or 2 days later the patient developed "stiffness" which includes stiffness back and legs. The mother states the patient "walks stiff." ED Past Medical Hx - Past Medical History Previous Medical History?: Yes Hx Psychiatric Treatment: Yes (schizophrenia, Bipolar) - Surgical History Past Surgical History?: No - Family History Family history: no significant - Social History Smoking Status: Current Every Day Smoker Substance Use Type: Alcohol, Marijuana - Medications Home Medications: Home Medications Medication Instructions Recorded Confirmed Last Taken Type Ketorolac [Toradol] 10 mg PO Q6H PRN #10 tablet 11/20/16 Unknown Rx Cephalexin [Keflex] 500 mg PO TID #30 capsule 11/27/16 Unknown Rx Gabapentin [Neurontin] 100 mg PO Q8HR #30 capsule 12/03/16 Unknown Rx Ketorolac [Toradol] 10 mg PO Q6H PRN #20 tablet 12/03/16 Unknown Rx Neomycin/Bacitracin/Polymyxinb 14.2 gm TP BID #1 tube 12/03/16 Unknown Rx [Neosporin Antibiotic Ointment] Divalproex Dr [Depilya Way] 250 mg PO BID #60 tablet 12/10/19 Unknown Rx haloperidoL [Haldol] 5 mg PO BID #60 tablet 12/10/19 Unknown Rx ED Review of Systems ROS: Stated complaint: FINGER, NECK AND BACK PAIN Other details as noted in HPI Comment: Unobtainable due to pts medical conditions Physical Exam - Physical Exam Vital Signs: Vital Signs 12/16/19 18:13 Temperature 98.3 F Pulse Rate 90 Respiratory 16 Rate Blood Pressure 134/68 O2 Sat by Pulse 100 Oximetry Physical Exam: GENERAL: The patient is well-developed well-nourished male with flat affect sitting on stretcher. [] HEENT: Normocephalic. Atraumatic. Extraocular motions are intact. Patient has moist mucous membranes. NECK: Trachea midline CHEST/LUNGS: Clear to auscultation. There is no respiratory distress noted. HEART/CARDIOVASCULAR: Regular. There is no tachycardia. There is no gallop rub or murmur. ABDOMEN: Abdomen is soft, nontender. Patient has normal bowel sounds. There is no abdominal distention. SKIN: There is no rash. There is no edema. There is no diaphoresis. NEURO: The patient is awake and alert but has a flat affect. The patient is cooperative. MUSCULOSKELETAL: There is no evidence of acute injury. ED Course Vital Signs 12/16/19 18:13 Temperature 98.3 F Pulse Rate 90 Respiratory 16 Rate Blood Pressure 134/68 O2 Sat by Pulse 100 Oximetry ED Medical Decision Making - Lab Data Result diagrams: 12/16/19 22:14 12/16/19 22:14 - Differential Diagnosis Acute dystonic reaction Critical care attestation.: If time is entered above; I have spent that time in minutes in the direct care of this critically ill patient, excluding procedure time. ED Disposition Clinical Impression: Acute dystonic reaction due to drugs, Rhabdomyolysis Disposition: OP ADMIT IP TO THIS HOSP Is pt being admited?: Yes Does the pt Need Aspirin: No Condition: Fair Time of Disposition: 23:25 (Hospitalist paged (Dr Gaona))
[2019-12-16 22:26] LABS: Basophils # (Auto) 0.2 K/mm3 (0.0-0.1); Basophils % (Auto) 1.6 % (0.0-1.8); Eosinophils % (Auto) 0.4 % (0.0-4.3); Hemoglobin 13.1 gm/dl (11.8-15.2); Lymphocytes % (Auto) 18.8 % (13.4-35.0); Mean Corpuscular HGB Conc 33 % (32-34); Mean Corpuscular Volume 91 fl (84-94); Monocytes # (Auto) 0.9 K/mm3 (0.0-0.8); Monocytes % (Auto) 8.1 % (0.0-7.3); Platelet Count 314 K/mm3 (140-440); Red Blood Count 4.42 M/mm3 (3.65-5.03); Red Cell Distribution Width 13.3 % (13.2-15.2)
[2019-12-16 22:47] LABS: BUN/Creatinine Ratio 22; Blood Urea Nitrogen 20 mg/dL (9-20); Calcium 10.3 mg/dL (8.4-10.2); Hemolysis Index 6
[2019-12-16] MEDS ORDERED: SODIUM CHLORIDE 0.9% 1000 ML 1,000 ML IV ONE ×3 (23:13→23:14)
[2019-12-17] MEDS ORDERED: ACETAMINOPHEN 325 MG TAB PO PRN (01:17)
[2019-12-17] MEDS ORDERED: ONDANSETRON 4 MG/2 ML INJ IV PRN (01:17)
[2019-12-17] MEDS ORDERED: MAGNESIUM HYDROXIDE (MOM) ORAL LIQD UDC PO PRN (01:17)
--- NOTE | 2019-12-17 01:28 | History and Physical Report ---
History of Present Illness Date of examination: 12/17/19 Date of admission: 12/17/2019 Chief complaint: Stiffness History of present illness: Patient is a 24-year-old male with recent diagnosis of schizophrenia and placed on Haldol . Mother indicates patient has developed stiffness 2 days after being started on the medication. Patient is also said to walk very stiff. He has been no history of fever or chills, no chest pain no shortness of breath, no nausea vomiting and no diarrhea. Patient unable to give any history at this time as he remains nonverbal. Work-up in the emergency room reveals creatinine kinase level in the 1999s. Patient has been started on IV fluid. Past History Past Medical History: other (Bipolar disorder, Schizophrenia) Past Surgical History: No surgical history Social history: smoking (Current daily smoker, ), alcohol abuse (Drinks alcohol almost daily), other (Uses Marijuana ) Family history: no significant family history Medications and Allergies Allergies Allergy/AdvReac Type Severity Reaction Status Date / Time amoxicillin trihydrate Allergy Rash Verified 11/30/16 13:36 [From Augmentin] azithromycin [From Zithromax] Allergy Rash Verified 11/30/16 13:36 ibuprofen [From Motrin] Allergy Rash Verified 11/30/16 13:36 Penicillins Allergy Rash Verified 11/30/16 13:36 potassium clavulanate Allergy Rash Verified 11/30/16 13:36 [From Augmentin] Home Medications Medication Instructions Recorded Confirmed Last Taken Type Ketorolac [Toradol] 10 mg PO Q6H PRN #10 tablet 11/20/16 Unknown Rx Cephalexin [Keflex] 500 mg PO TID #30 capsule 11/27/16 Unknown Rx Gabapentin [Neurontin] 100 mg PO Q8HR #30 capsule 12/03/16 Unknown Rx Ketorolac [Toradol] 10 mg PO Q6H PRN #20 tablet 12/03/16 Unknown Rx Neomycin/Bacitracin/Polymyxinb 14.2 gm TP BID #1 tube 12/03/16 Unknown Rx [Neosporin Antibiotic Ointment] Divalproex Dr [Blaine Dr] 250 mg PO BID #60 tablet 12/10/19 Unknown Rx haloperidoL [Haldol] 5 mg PO BID #60 tablet 12/10/19 Unknown Rx Active Meds: Active Medications Acetaminophen (Tylenol) 650 mg PO Q4H PRN PRN Reason: Pain MILD(1-3)/Fever >100.5/MCARTHUR Enoxaparin Sodium (Enoxaparin) 40 mg SUB-Q QDAY@2200 [facility] Sodium Chloride (Nacl 0.9% 1000 Ml) 1,000 mls @ 250 mls/hr IV ONCE ONE Stop: 12/17/19 03:13 Last Admin: 12/17/19 00:23 Dose: 250 mls/hr Documented by: Sodium Chloride (Nacl 0.9% 1000 Ml) 1,000 mls @ 150 mls/hr IV DIRECT [facility] Magnesium Hydroxide (Milk Of Magnesia) 30 ml PO Q4H PRN PRN Reason: Constipation Ondansetron HCl (Zofran) 4 mg IV Q8H PRN PRN Reason: Nausea And Vomiting Sodium Chloride (Sodium Chloride Flush Syringe 10 Ml) 10 ml IV BID [facility] Sodium Chloride (Sodium Chloride Flush Syringe 10 Ml) 10 ml IV PRN PRN PRN Reason: LINE FLUSH Review of Systems ROS unobtainable: due to mental status Exam - Constitutional Vitals: Temp Pulse Resp BP Pulse Ox 98.3 F 90 18 134/68 100 12/16/19 18:13 12/16/19 18:13 12/16/19 21:32 12/16/19 18:13 12/16/19 18:13 General appearance: Present: no acute distress, well-nourished - EENT Eyes: Present: PERRL, EOM intact. Absent: scleral icterus ENT: hearing intact, clear oral mucosa, dentition normal - Neck Neck: Present: supple, normal ROM - Respiratory Respiratory effort: normal Respiratory: bilateral: CTA - Cardiovascular Rhythm: regular Heart Sounds: Present: S1 & S2. Absent: gallop, systolic murmur, diastolic murmur, rub - Extremities Extremities: no ischemia, pulses intact, pulses symmetrical, No edema, Full ROM Peripheral Pulses: within normal limits - Abdominal General gastrointestinal: Present: soft, non-tender, non-distended, normal bowel sounds. Absent: mass - Integumentary Integumentary: Present: clear, warm, dry - Musculoskeletal Musculoskeletal: strength equal bilaterally - Psychiatric Psychiatric: cooperative, depressed - Neurologic Neurologic: CNII-XII intact, no focal deficits, moves all extremities Results - Labs CBC & Chem 7: 12/16/19 22:14 12/16/19 22:14 Labs: Abnormal lab results 12/16/19 12/16/19 12/16/19 Range/Units 22:14 22:14 22:14 [place] % (Auto) 8.1 H (0.0-7.3) % Jenkins # 0.9 H (0.0-0.8) K/mm3 Baso # 0.2 H (0.0-0.1) K/mm3 Seg Neutrophils % 71.1 H (40.0-70.0) % Sodium 136 L (137-145) mmol/L Chloride 92.2 L (98-107) mmol/L POC Glucose (70-105) Calcium 10.3 H (8.4-10.2) mg/dL Total Creatine Kinase 2199 H (55-170) units/L Valproic Acid 26.4 L (50-100) ug/mL 12/16/19 Range/Units 22:53 Jenkins % (Auto) (0.0-7.3) % Jenkins # (0.0-0.8) K/mm3 Baso # (0.0-0.1) K/mm3 Seg Neutrophils % (40.0-70.0) % Sodium (137-145) mmol/L Chloride (98-107) mmol/L POC Glucose 66 L (70-105) Calcium (8.4-10.2) mg/dL Total Creatine Kinase (55-170) units/L Valproic Acid (50-100) ug/mL Assessment and Plan - Patient Problems (1) Rhabdomyolysis Current Visit: Yes Status: Acute Plan to address problem: Possibly secondary to side effect of medication. Will place on IV fluid and also monitor creatinine kinase levels. (2) Acute dystonic reaction due to drugs Current Visit: Yes Status: Acute Plan to address problem: Patient will be closely monitored and will also place a consult to mental health for evaluation and recommendation. (3) DVT prophylaxis Current Visit: Yes Status: Acute Plan to address problem: Patient placed on subcutaneous Lovenox. (4) Full code status Current Visit: Yes Status: Acute
[2019-12-17] MEDS ORDERED: LORazepam 2 MG/ML VIAL IV PRN (01:56)
[2019-12-17] MEDS ORDERED: LORazepam 2 MG/ML VIAL ONE ×2 (01:59→06:50)
[2019-12-17] MEDS ORDERED: SODIUM CHLORIDE 0.9% 1000 ML 1,000 ML ONE (04:49)
[2019-12-17] MEDS: SODIUM CHLORIDE 0.9% 1000 ML 1,000 ML IV SCH (05:10)
[2019-12-17] MEDS: LORazepam 2 MG/ML VIAL IV PRN (13:56)
[2019-12-17] MEDS ORDERED: ZIPRASIDONE MESYLATE 20 MG VIAL IM ONE (15:30)
--- NOTE | 2019-12-17 15:40 | Event Note ---
Date: 12/17/19 Continue hydration, monitor CPK. Remains altered. Awaiting PSYCH INPUT.
[2019-12-17] MEDS ORDERED: WATER FOR INJ Sterile (PF) 10 ML IM ONE (16:16)
[2019-12-17] MEDS: ENOXAPARIN 40 MG/0.4 ML INJ SUB-Q SCH (22:30)
[2019-12-18] MEDS: LORazepam 2 MG/ML VIAL IV PRN ×3 (02:52→16:08)
[2019-12-18] MEDS: SODIUM CHLORIDE 0.9% 1000 ML 1,000 ML IV SCH (03:22)
[2019-12-18 06:05] LABS: Basophils # (Auto) 0.1 K/mm3 (0.0-0.1); Basophils % (Auto) 1.1 % (0.0-1.8); Eosinophils # (Auto) 0.1 K/mm3 (0.0-0.4); Eosinophils % (Auto) 1.5 % (0.0-4.3); Hemoglobin 11.9 gm/dl (11.8-15.2); Lymphocytes % (Auto) 34.8 % (13.4-35.0); Mean Corpuscular HGB Conc 33 % (32-34); Mean Corpuscular Volume 90 fl (84-94); Monocytes # (Auto) 0.9 K/mm3 (0.0-0.8); Monocytes % (Auto) 15.2 % (0.0-7.3); Platelet Count 235 K/mm3 (140-440); Red Blood Count 4.02 M/mm3 (3.65-5.03); Red Cell Distribution Width 13.4 % (13.2-15.2)
[2019-12-18 06:18] LABS: INR 1.21 (0.87-1.13)
[2019-12-18 06:44] LABS: BUN/Creatinine Ratio 15; Blood Urea Nitrogen 12 mg/dL (9-20); Calcium 9.1 mg/dL (8.4-10.2); Hemolysis Index 8
[2019-12-18] MEDS: DIVALPROEX DR 250 MG TAB PO SCH ×2 (09:44→21:34)
--- NOTE | 2019-12-18 14:04 | Progress Note ---
Assessment and Plan Acute rhabdomyolysis -Continue with aggressive IV fluid hydration, monitor CPK level Acute dystonia due to medications -Continue to hold Haldol Schizophrenia with psychosis -Psych consulted, sitter on place with restrain -Start back on Depakote, continue to hold Haldol DVT prophylaxis, Lovenox 12/17: Patient still has significantly elevated CPK level, patient remains on restraint and he is fighting it, sitter on place. Pending psych consult. Brief history: This is a 24-year-old male with recent diagnosis of schizophrenia who has been recently placed on Haldol and subsequently developed stiffness 2 days after being started on that medicine, admitted to the hospital for muscle stiffness and rhabdomyolysis. Patient Haldol dose was on hold, placed on aggressive IV fluid hydration, CPK was monitored. Psychiatry was consulted. Patient will be discharged once cleared by psychiatry. Patient is currently agitated and remains on restraint. Subjective Date of service: 12/18/19 Interval history: Patient seen and examined. Medical records and medication list reviewed. Patient remains agitated and on restrain Sitter at bedside, discussed plan of care with RN Objective - Exam Narrative Exam: GENERAL: well-developed black male lying on bed appeared to be very confused and also lethargic on restraint HEENT: Normocephalic. Atraumatic. No conjunctival congestion or icterus. Patient has moist mucous membranes. NECK: Supple. Trachea midline. CHEST/LUNGS: Clear to auscultated bilaterally, breathing nonlabored. No wheezes crackles or rhonchi. HEART/CARDIOVASCULAR: Regular in rate and rhythm. S1 and S2 positive. ABDOMEN: Abdomen is soft, nontender. Patient has normal bowel sounds. SKIN: There is no rash. Warm and dry. NEURO: No focal motor deficit. Follows brief command. MUSCULOSKELETAL: No joint effusion or tenderness. EXTRIMITY: No edema, no cyanosis or clubbing. PSYCH: Patient unrestrained appears very confused. - Constitutional Vitals: Vital Signs - 12hr 12/18/19 05:29 Temperature 98.3 F Pulse Rate 92 H Respiratory 20 Rate Blood Pressure 132/72 O2 Sat by Pulse 100 Oximetry - Labs CBC & Chem 7: 12/18/19 05:46 12/18/19 05:46 Labs: Abnormal lab results 12/18/19 12/18/19 12/18/19 Range/Units 05:46 05:46 05:46 [place] % (Auto) 15.2 H (0.0-7.3) % [place] # 0.9 H (0.0-0.8) K/mm3 PT 15.5 H (12.2-14.9) Sec. INR 1.21 H (0.87-1.13) Total Creatine Kinase 2961 H (55-170) units/L
[2019-12-18] MEDS: ENOXAPARIN 40 MG/0.4 ML INJ SUB-Q SCH (21:34)
[2019-12-19] MEDS: DIVALPROEX DR 250 MG TAB PO SCH ×2 (10:59→23:41)
[2019-12-19] MEDS: LORazepam 2 MG/ML VIAL IV PRN (11:01)
--- NOTE | 2019-12-19 13:21 | Consultation ---
History of Present Illness - Reason for Consult Consult date: 12/19/19 Reason for consult: agitation, schizophrenia - Chief Complaint Chief complaint: Stiffness - History of Present Psychiatric Illness The patient's medical record was reviewed and the patient's progress was discussed with the nursing staff. The nurse note states the patient the patient is agitated and restless, Not following staff directions. He continues to try to take off his restraints and get out of bed. Remains 1:1 with a sitter who redirects patient. Mild tremors noted. Non verbal with staff. Ativan IV given as ordered. Lauro Pina is a 24y/o male patient who was brought to the hospital after having stiffness after being started on haldol, according to records. During my interview with the patient today, he is lying in bed asleep. He easily arouses. He's in 4-point restraints. The patient is a/o x 2. The patient says he was admitted into the hospital "because they gave me the wrong diagnoses." The patient verbalizes, being "okay, but upset that I can't get out of here." He denies SI/HI at present, but states he had "one attempt in the past." He says he was admitted for psychiatric problems "one time." The patient verbalizes "hearin g voices in my head." He says "they are telling me to talk to you and get out of here." The patient then raises up and starts pulling against the restraints. He says he has a history of "bipolar schizophrenia." The patient could not recall any of his medications. He denies any illicit drug use, alcohol or nicotine. PAST PSYCHIATRIC HISTORY: Diagnoses: Bipolar schizophrenia Suicide attempts or Self-harm behavior: once Prior psychiatric hospitalizations: Once Substance Abuse history: Denies, UDS shows THC Previous psychiatric medications tried: Could not recall Outpatient treatment: Yes PAST MEDICAL HISTORY: None reported Family Psychiatric History: None reported or documented SOCIAL HISTORY Marital Status: Single Living Arrangements: with mother Employment Status: Disabled Access to guns/weapons: Denies Education: high school History of Abuse: Denies Legal History: Denies REVIEW OF SYSTEMS Constitutional: Negative for weight loss ENT: Negative for stridor Respiratory: Negative for cough or hemoptysis All other systems reviewed and are negative MENTAL STATUS EXAMINATION General Appearance: Dressed appropriately Behavior: Calm and cooperative Mood: "okay" Affect and affective range: Flat Thought Process: Goal directed Speech: normal tone and pace Thought Content: Suicidal Ideation: Denies SI Homicidal Ideation: Denies Hallucinations: Auditory Delusions: None elicited Insight and Judgment: Limited Memory/Cognition: Limited Attention: Normal ASSESSMENT Schizoaffective, Bipolar Type RECOMMENDATIONS Initiated 1013 Start Trazodone 50mg po qhs Start Risperidone 0.25mg po BID Start Klonopin 0.25mg po BID Start Geodon 20mg IM q6h prn agitation Sitter: Defer to primary Medical: per primary Disposition: Recommend acute inpatient psychiatric treatment. The patient may transfer to inpatient psych once medically clear. Will continue to follow. Thank you for this consult. Please call with any questions or concerns. Medications and Allergies Allergies Allergy/AdvReac Type Severity Reaction Status Date / Time amoxicillin trihydrate Allergy Rash Verified 11/30/16 13:36 [From Augmentin] azithromycin [From Zithromax] Allergy Rash Verified 11/30/16 13:36 ibuprofen [From Motrin] Allergy Rash Verified 11/30/16 13:36 Penicillins Allergy Rash Verified 11/30/16 13:36 potassium clavulanate Allergy Rash Verified 11/30/16 13:36 [From Augmentin] haloperidol AdvReac Severe DYSTONIA Verified 12/19/19 10:57 divalproex sodium AdvReac Unknown Verified 12/17/19 19:48 [From Depakote] Home Medications Medication Instructions Recorded Confirmed Last Taken Type Ketorolac [Toradol] 10 mg PO Q6H PRN #10 tablet 11/20/16 Unknown Rx Cephalexin [Keflex] 500 mg PO TID #30 capsule 11/27/16 Unknown Rx Gabapentin [Neurontin] 100 mg PO Q8HR #30 capsule 12/03/16 Unknown Rx Ketorolac [Toradol] 10 mg PO Q6H PRN #20 tablet 12/03/16 Unknown Rx Neomycin/Bacitracin/Polymyxinb 14.2 gm TP BID #1 tube 12/03/16 Unknown Rx [Neosporin Antibiotic Ointment] Divalproex Dr [Depakote Dr] 250 mg PO BID #60 tablet 12/10/19 Unknown Rx haloperidoL [Haldol] 5 mg PO BID #60 tablet 12/10/19 Unknown Rx Active Meds: Active Medications Acetaminophen (Tylenol) 650 mg PO Q4H PRN PRN Reason: Pain MILD(1-3)/Fever >100.5/MCARTHUR Divalproex Sodium (Depakote Dr) 250 mg PO BID [facility] Last Admin: 12/19/19 10:59 Dose: Not Given Documented by: Enoxaparin Sodium (Enoxaparin) 40 mg SUB-Q QDAY@2200 [facility] Last Admin: 12/18/19 21:34 Dose: 40 mg Documented by: Sodium Chloride (Nacl 0.9% 1000 Ml) 1,000 mls @ 150 mls/hr IV DIRECT [facility] Last Admin: 12/18/19 03:22 Dose: 150 mls/hr Documented by: Lorazepam (Ativan) 2 mg IV Q4H PRN PRN Reason: Agitation Last Admin: 12/19/19 11:01 Dose: 2 mg Documented by: Magnesium Hydroxide (Milk Of Magnesia) 30 ml PO Q4H PRN PRN Reason: Constipation Ondansetron HCl (Zofran) 4 mg IV Q8H PRN PRN Reason: Nausea And Vomiting Sodium Chloride (Sodium Chloride Flush Syringe 10 Ml) 10 ml IV BID [facility] Last Admin: 12/19/19 11:00 Dose: 10 ml Documented by: Sodium Chloride (Sodium Chloride Flush Syringe 10 Ml) 10 ml IV PRN PRN PRN Reason: LINE FLUSH Mental Status Exam - Vital signs Last Vital Signs Temp 98 F 12/18/19 15:25 Pulse 93 H 12/18/19 11:50 Resp 18 12/18/19 21:34 BP 151/90 12/18/19 11:50 Pulse Ox 95 12/18/19 11:50 Results Result Diagrams: 12/18/19 05:46 12/18/19 05:46 All other labs normal.
[2019-12-19] MEDS ORDERED: WATER FOR INJ Sterile (PF) 10 ML IM PRN (15:03)
[2019-12-19] MEDS: risperiDONE 0.25 MG TAB PO SCH ×2 (15:10→23:40)
[2019-12-19] MEDS: ZIPRASIDONE MESYLATE 20 MG VIAL IM PRN (15:11)
--- NOTE | 2019-12-19 15:27 | Progress Note ---
Assessment and Plan Acute rhabdomyolysis -Continue with aggressive IV fluid hydration, monitor CPK level Acute dystonia due to medications -Continue to hold Haldol Schizophrenia with psychosis -Psych consulted, sitter on place with restrain -Start back on Depakote, continue to hold Haldol DVT prophylaxis, Lovenox 12/17: Patient still has significantly elevated CPK level, patient remains on restraint and he is fighting it, sitter on place. Pending psych consult. 12/18: patient remains on restraint and he is very confused. Psych following. follow repeat CPK level Brief history: This is a 24-year-old male with recent diagnosis of schizophrenia who has been recently placed on Haldol and subsequently developed stiffness 2 days after being started on that medicine, admitted to the hospital for muscle stiffness and rhabdomyolysis. Patient Haldol dose was on hold, placed on aggressive IV fluid hydration, CPK was monitored. Psychiatry was consulted.Patient will be discharged once cleared by psychiatry. Patient is currently agitated and remains on restraint. Subjective Date of service: 12/19/19 Interval history: Patient seen and examined. Medical records and medication list reviewed. Patient remains agitated and on restrain Sitter at bedside, discussed plan of care with RN Objective - Exam Narrative Exam: GENERAL: Well-developed black male lying on bed appeared to be very confused and also lethargic on restraint HEENT: Normocephalic. Atraumatic. No conjunctival congestion or icterus. Patient has moist mucous membranes. NECK: Supple. Trachea midline. CHEST/LUNGS: Clear to auscultated bilaterally, breathing nonlabored. No wheezes crackles or rhonchi. HEART/CARDIOVASCULAR: Regular in rate and rhythm. S1 and S2 positive. ABDOMEN: Abdomen is soft, nontender. Patient has normal bowel sounds. SKIN: There is no rash. Warm and dry. NEURO: No focal motor deficit. Follows brief command. MUSCULOSKELETAL: No joint effusion or tenderness. EXTRIMITY: No edema, no cyanosis or clubbing. PSYCH: Patient unrestrained appears very confused. - Constitutional Vitals: Vital Signs - 12hr 12/19/19 11:28 Temperature 98.6 F Pulse Rate 106 H Respiratory 22 Rate Blood Pressure 140/95 O2 Sat by Pulse 92 Oximetry - Labs CBC & Chem 7: 12/18/19 05:46 12/18/19 05:46
[2019-12-19] MEDS ORDERED: traZODone 50 MG TAB PO SCH (22:00)
[2019-12-19] MEDS: clonazePAM 0.5 MG TAB PO SCH (23:40)
[2019-12-19] MEDS: ENOXAPARIN 40 MG/0.4 ML INJ SUB-Q SCH (23:40)
[2019-12-20] MEDS: DIVALPROEX DR 250 MG TAB PO SCH ×2 (10:01→21:53)
[2019-12-20] MEDS: risperiDONE 0.25 MG TAB PO SCH ×3 (10:04→21:54)
[2019-12-20] MEDS: clonazePAM 0.5 MG TAB PO SCH ×3 (10:04→21:53)
--- NOTE | 2019-12-20 11:53 | Progress Note ---
Subjective - Reason for Consult Consult date: 12/20/19 Reason for consult: agitation - Chief Complaint Chief complaint: The patient's medical record was reviewed and the patient's progress was discussed with the nursing staff. During my interview with the patient today, he is lying in bed awake. He is much more calm and less agitated today. He is polite. He is out of restraints. The patient is a/o x 2. He is smiling inappropriately. He is responding to internal stimuli. The patient states, "I feel a lil bit better." He then starts grinning. The patient verbalizes "hearing voices that are saying good things." He says, "they are guiding me." He then pats his chest and says, "yea, they are just guiding me right now." The patient denies SI/HI. He states, "not right now, but before." He looks away and starts smiling. When informing the patient that he would go to inpatient psych, he replies "yes, ma'am, I need it." The patient says he "barely slept last night." He says, "I don't know why. I just didn't sleep." He is watching the t.v grinning as I'm ending the interview. REVIEW OF SYSTEMS Constitutional: Negative for weight loss ENT: Negative for stridor Respiratory: Negative for cough or hemoptysis All other systems reviewed and are negative MENTAL STATUS EXAMINATION General Appearance: Dressed appropriately Behavior: Calm and cooperative. Polite Mood: "lil bit better" Affect and affective range: Smiling inappropriately Thought Process: Responding to internal stimuli Speech: normal tone and pace Thought Content: Suicidal Ideation: Denies SI Homicidal Ideation: Denies Hallucinations: Auditory Delusions: None elicited Insight and Judgment: Limited Memory/Cognition: Limited Attention: Normal ASSESSMENT Schizoaffective, Bipolar Type RECOMMENDATIONS Increased Risperidone 0.5mg po BID Increased Trazodone 75mg po qhs Sitter: Defer to primary Medical: per primary Disposition: Recommend acute inpatient psychiatric treatment. The patient may transfer to inpatient psych once medically clear. Will continue to follow. Thank you for this consult. Please call with any questions or concerns. Mental Status Exam - Vital signs Last Vital Signs Temp 97.8 F 12/20/19 04:35 Pulse 85 12/20/19 04:35 Resp 18 12/20/19 04:35 BP 114/72 12/20/19 04:35 Pulse Ox 95 12/20/19 04:35
[2019-12-20] MEDS: LORazepam 2 MG/ML VIAL IV PRN ×2 (11:54→18:40)
--- NOTE | 2019-12-20 17:17 | Progress Note ---
Assessment and Plan Acute rhabdomyolysis -Continue with aggressive IV fluid hydration, monitor CPK level Acute dystonia due to medications -Continue to hold Haldol Schizophrenia with psychosis -Psych consulted, sitter on place with restrain -Start back on Depakote, continue to hold Haldol DVT prophylaxis, Lovenox 12/17: Patient still has significantly elevated CPK level, patient remains on restraint and he is fighting it, sitter on place. Pending psych consult. 12/18: patient remains on restraint and he is very confused. Psych following. follow repeat CPK level 12/19: CPK trended down, patient appears comfortable. medically stable for inpt psych admission Brief history: This is a 24-year-old male with recent diagnosis of schizophrenia who has been recently placed on Haldol and subsequently developed stiffness 2 days after being started on that medicine, admitted to the hospital for muscle stiffness and rhabdomyolysis. Patient Haldol dose was on hold, placed on aggressive IV fluid hydration, CPK was monitored. Psychiatry was consulted.Patient will be discharged once cleared by psychiatry. Patient is currently agitated and remains on restraint. Subjective Date of service: 12/20/19 Interval history: Patient seen and examined. Medical records and medication list reviewed. Sitter at bedside, discussed plan of care with RN Patient off restraint today Objective - Exam Narrative Exam: GENERAL: Well-developed black male lying on bed appeared to be very confused HEENT: Normocephalic. Atraumatic. No conjunctival congestion or icterus. Patient has moist mucous membranes. NECK: Supple. Trachea midline. CHEST/LUNGS: Clear to auscultated bilaterally, breathing nonlabored. No wheezes crackles or rhonchi. HEART/CARDIOVASCULAR: Regular in rate and rhythm. S1 and S2 positive. ABDOMEN: Abdomen is soft, nontender. Patient has normal bowel sounds. SKIN: There is no rash. Warm and dry. NEURO: No focal motor deficit. Follows brief command. MUSCULOSKELETAL: No joint effusion or tenderness. EXTRIMITY: No edema, no cyanosis or clubbing. PSYCH: Patient unrestrained appears very confused. - Labs CBC & Chem 7: 12/18/19 05:46 12/18/19 05:46 Labs: Abnormal lab results 12/19/19 Range/Units 17:21 Total Creatine Kinase 1858 H (55-170) units/L
[2019-12-20] MEDS: traZODone 50 MG TAB PO SCH ×2 (20:36→21:53)
[2019-12-20] MEDS: ENOXAPARIN 40 MG/0.4 ML INJ SUB-Q SCH (23:00)
[2019-12-20] MEDS: SODIUM CHLORIDE 0.9% 1000 ML 1,000 ML IV SCH (23:05)
[2019-12-20] MEDS: ZIPRASIDONE MESYLATE 20 MG VIAL IM PRN (23:06)
[2019-12-21] MEDS: SODIUM CHLORIDE 0.9% 1000 ML 1,000 ML IV SCH (05:22)
[2019-12-21] MEDS: clonazePAM 0.5 MG TAB PO SCH (08:00)
[2019-12-21] MEDS: risperiDONE 0.25 MG TAB PO SCH (08:33)
--- NOTE | 2019-12-21 09:47 | Progress Note ---
Subjective - Reason for Consult Consult date: 12/21/19 Reason for consult: MHE Requesting physician: STEPH CARO - Chief Complaint Chief complaint: PSYCH HPI Patient says he feels good, smiling intermittently, oriented to facility knows he is at [facility], agrees to being admitted because he had a little episode and that he has been thinking about good things. MENTAL STATUS EXAMINATION General Appearance and Behavior: Age appropriate, improved hygiene, good eye contact, cooperative polite with questioning. Cooperation: engaged but slightly withdrawn Psychomotor Behavior: Normal psychomotor Mood: good Affect and affective range: euthymic Thought Process: illogical Thought Content: Speech: slow but clear and audible Intellectual Functioning: Average Suicidal Ideation: none Homicidal Ideation: none Impulse Control: Impaired Insight and Judgment: impaired Memory: unknown Attention: retained Orientation: Alert and oriented Assessment and Plan - Patient Problems (1) Concern about drug reaction without diagnosis Current Visit: Yes Status: Acute (2) Schizoaffective disorder Current Visit: Yes Status: Acute RECOMMENDATIONS Risperidone discontinued due to potential akathasia and parkinosm side effects. Outpt psych and neurology f/u recommended at this time. Pt to be discharged with Olanzapine 5mg QHS and F/U out pt psychiatrist. MEDICATIONS: Risks, benefits and alternatives of medications discussed with the patient, questions answered and consent obtained from patient. PSYCHOTHERAPY: Supportive psychotherapy provided MEDICAL: Per primary team DELIRIUM PRECAUTIONS: Please re-orient patient frequently, keep lights on during the day, and minimize benzodiazepines and opiates as these medications could worsen patient's confusion. WEEKEND CAREGIVER: per medical team DISPOSITION: Do not recommend acute inpatient psychiatric hospitalization at this time. Recommends outpt psych F/U and neuro evaluation. LEGAL STATUS: 1013 rescinded FOLLOW-UP: Will sign off Thank you for the consult. Please contact with any questions and/or concerns. Mental Status Exam - Vital signs Last Vital Signs Temp 98.3 F 12/21/19 05:50 Pulse 63 12/21/19 05:50 Resp 22 12/21/19 05:50 BP 96/51 12/21/19 05:50 Pulse Ox 99 12/21/19 05:50 Assessment and Plan - Patient Problems (1) Concern about drug reaction without diagnosis Current Visit: Yes Status: Acute (2) Schizoaffective disorder Current Visit: Yes Status: Acute
[2019-12-21] MEDS: DIVALPROEX DR 250 MG TAB PO SCH (12:37)
[2019-12-21] MEDS: LORazepam 2 MG/ML VIAL IV PRN (12:38)
[2019-12-21 13:30] VITALS: BP 111/61
--- NOTE | 2019-12-21 13:50 | Discharge Summary ---
Providers - Providers Date of Admission: 12/18/19 14:28 Date of discharge: 12/21/19 Attending physician: STEPH CARO 12/17/19 01:46 Consult to Mental Health [CONS] Routine Reason For Exam: h/o schizophrenia.Bipolar disorder 12/17/19 17:37 Consult to Dietitian/Nutrition [CONS] Routine Physician Instructions: Reason For Exam: Reason for Consult: Poor oral intake Primary care physician: CHARTER PILOT Hospitalization Condition: Fair Hospital course: This is a 24-year-old male with recent diagnosis of schizophrenia who has been recently placed on Haldol and subsequently developed stiffness 2 days after being started on that medicine, admitted to the hospital for muscle stiffness and rhabdomyolysis. Patient Haldol dose was on hold, placed on aggressive IV fluid hydration, CPK was monitored. Psychiatry was consulted. Patient was initially planned for inpatient psych admission but his symptoms significantly improved with psychiatric medications readjustment. Psychiatry then rescinded 1013 and recommended outpatient follow-up. Daily course: 12/17: Patient still has significantly elevated CPK level, patient remains on restraint and he is fighting it, sitter on place. Pending psych consult. 12/18: patient remains on restraint and he is very confused. Psych following. follow repeat CPK level 12/19: CPK trended down, patient appears comfortable. medically stable for inpt psych admission 12/20: Rescinded 1013, patient's mental status significantly improved and following commands. Psychiatry recommended outpatient follow-up and cleared for discharge. Discharge diagnosis: Acute rhabdomyolysis Acute dystonia due to medications --Continue to hold Haldol Schizoaffective disorder with psychosis Disposition: - TO HOME OR SELFCARE Time spent for discharge: 34 minutes Core Measure Documentation - Palliative Care Palliative Care/ Comfort Measures: Not Applicable - Core Measures Any of the following diagnoses?: none Exam - Physical Exam Narrative exam: GENERAL: Well-developed black male lying on bed appeared to be in no distress HEENT: Normocephalic. Atraumatic. No conjunctival congestion or icterus. Patient has moist mucous membranes. NECK: Supple. Trachea midline. CHEST/LUNGS: Clear to auscultated bilaterally, breathing nonlabored. No wheezes crackles or rhonchi. HEART/CARDIOVASCULAR: Regular in rate and rhythm. S1 and S2 positive. ABDOMEN: Abdomen is soft, nontender. Patient has normal bowel sounds. SKIN: There is no rash. Warm and dry. NEURO: No focal motor deficit. Follows brief command. MUSCULOSKELETAL: No joint effusion or tenderness. EXTRIMITY: No edema, no cyanosis or clubbing. PSYCH: Patient follows command and oriented - Constitutional Vitals: Temp Pulse Resp BP Pulse Ox 97.0 F L 82 18 111/61 100 12/21/19 10:23 12/21/19 10:23 12/21/19 10:23 12/21/19 10:23 12/21/19 10:23 Plan Activity: advance as tolerated Weight Bearing Status: Weight Bear as Tolerated Diet: low fat Additional Instructions: Follow-up with outpatient psychiatry Follow up with: PRIMARY CARE, [Primary Care Provider] - 7 Days Prescriptions: traZODone [Desyrel] 75 mg PO QHS #10 tablet OLANzapine [ZyPREXA] 5 mg PO QHS #10 tablet clonazePAM [KlonoPIN] 0.25 mg PO BID #14 tablet
== END 2019-12-21 17:15 | disposition home or self-care (01) | DRG 92 ==
LOC: ED 17:26 → 3A 12-17 00:57 → OBSVTOIN 12-18 14:28
PROVIDERS: ADMIT Internal Medicine Geriatric Medicine; ATTEND Internal Medicine
DX: G24.02 Drug induced acute dystonia (principal); M62.82 Rhabdomyolysis; F17.200 Nicotine dependence, unspecified, uncomplicated; F25.0 Schizoaffective disorder, bipolar type; F12.90 Cannabis use, unspecified, uncomplicated; T43.4X5A Adverse effect of butyrophenone and thiothixene neuroleptics, initial encounter; Z88.1 Allergy status to other antibiotic agents; Z88.8 Allergy status to other drugs, medicaments and biological substances; Z88.0 Allergy status to penicillin; Y92.89 Other specified places as the place of occurrence of the external cause; Z72.89 Other problems related to lifestyle
CPT/HCPCS: 36415; 80048; 80164; 82550; 82962; 85025; 85610; 87641; G0378; J1200; J1650; J2060; J3486; J7030

== ENCOUNTER 2020-07-16 04:44 | Emergency (ER) | payer SELFPAY ==
[2020-07-16 04:57] VITALS: BP 123/75
[2020-07-16] MEDS ORDERED: ACETAMINOPHEN 500 MG TAB PO ONE (05:54)
--- NOTE | 2020-07-16 05:55 | Emergency Department Report ---
ED General Adult HPI - General Chief complaint: Wound/Laceration Stated complaint: LT FINGER LACERATION Time Seen by Provider: 07/16/20 05:50 Source: patient Mode of arrival: Ambulatory Limitations: No Limitations - History of Present Illness Initial comments: Patient is a 25-year-old male who presents for left posterior index finger laceration. States he was horse playing with his cousin and struck his finger on a glass breaking the glass. There is no tingling, numbness or deformity. Last tetanus unknown pain is 2016. - Related Data Previous Rx's Medication Instructions Recorded Last Taken Type OLANzapine [ZyPREXA] 5 mg PO QHS #10 tablet 12/21/19 Unknown Rx clonazePAM [KlonoPIN] 0.25 mg PO BID #14 tablet 12/21/19 Unknown Rx traZODone [Desyrel] 75 mg PO QHS #10 tablet 12/21/19 Unknown Rx Acetaminophen [Acetaminophen TAB] 1,000 mg PO Q6HR PRN #30 tablet 07/16/20 Unknown Rx cephALEXin [Keflex] 500 mg PO Q8HR 7 Days #21 cap 07/16/20 Unknown Rx Allergies Allergy/AdvReac Type Severity Reaction Status Date / Time amoxicillin trihydrate Allergy Rash Verified 11/30/16 13:36 [From Augmentin] azithromycin [From Zithromax] Allergy Rash Verified 11/30/16 13:36 ibuprofen [From Motrin] Allergy Rash Verified 11/30/16 13:36 Penicillins Allergy Rash Verified 11/30/16 13:36 potassium clavulanate Allergy Rash Verified 11/30/16 13:36 [From Augmentin] haloperidol AdvReac Severe DYSTONIA Verified 12/19/19 10:57 divalproex sodium AdvReac Unknown Verified 12/17/19 19:48 [From Depakote] ED Review of Systems ROS: Stated complaint: LT FINGER LACERATION Other details as noted in HPI Constitutional: denies: chills, fever Eyes: denies: eye pain, eye discharge, vision change ENT: denies: ear pain, throat pain Respiratory: denies: cough, shortness of breath, wheezing Cardiovascular: denies: chest pain, palpitations Endocrine: no symptoms reported Gastrointestinal: denies: abdominal pain, nausea, diarrhea Genitourinary: denies: urgency, dysuria Musculoskeletal: other (laceration left index finger) Skin: other (laceration as above ). denies: rash, lesions Neurological: denies: headache, weakness, paresthesias Psychiatric: denies: anxiety, depression Hematological/Lymphatic: denies: easy bleeding, easy bruising ED Past Medical Hx - Past Medical History Previous Medical History?: Yes Hx Hypertension: No Hx CVA: No Hx Psychiatric Treatment: Yes (schizophrenia, Bipolar) - Surgical History Past Surgical History?: No - Social History Smoking Status: Current Every Day Smoker Substance Use Type: Alcohol, Marijuana - Medications Home Medications: Home Medications Medication Instructions Recorded Confirmed Last Taken Type OLANzapine [ZyPREXA] 5 mg PO QHS #10 tablet 12/21/19 Unknown Rx clonazePAM [KlonoPIN] 0.25 mg PO BID #14 tablet 12/21/19 Unknown Rx traZODone [Desyrel] 75 mg PO QHS #10 tablet 12/21/19 Unknown Rx Acetaminophen [Acetaminophen TAB] 1,000 mg PO Q6HR PRN #30 tablet 07/16/20 Unknown Rx cephALEXin [Keflex] 500 mg PO Q8HR 7 Days #21 cap 07/16/20 Unknown Rx ED Physical Exam - General Limitations: No Limitations General appearance: alert, in no apparent distress - Head Head exam: Present: atraumatic, normocephalic - Eye Eye exam: Present: normal appearance, EOMI Pupils: Present: normal accommodation - ENT ENT exam: Present: mucous membranes moist - Neck Neck exam: Present: normal inspection, full ROM. Absent: tenderness - Respiratory Respiratory exam: Present: normal lung sounds bilaterally. Absent: respiratory distress, wheezes - Cardiovascular Cardiovascular Exam: Present: regular rate, normal rhythm, normal heart sounds. Absent: systolic murmur, diastolic murmur, rubs, gallop - GI/Abdominal GI/Abdominal exam: Present: soft, normal bowel sounds. Absent: tenderness - Rectal Rectal exam: Present: deferred - Extremities Exam Extremities exam: Present: full ROM, tenderness, normal capillary refill - Expanded Upper Extremity Exam Left Hand Wrist exam: Present: laceration (left posterior index finger pip joint, flexion and extension normal no foreign body) Neuro motor exam: Present: wrist extension intact, thumb opposition intact, thumb IP flexion intact, thumb adduction intact, fingers 2-5 abduction intact Neurosensory exam: Present: radial nerve intact Vascular: Present: normal capillary refill - Back Exam Back exam: Present: normal inspection, full ROM. Absent: tenderness - Neurological Exam Neurological exam: Present: alert, oriented X3, CN II-XII intact, normal gait, reflexes normal. Absent: motor sensory deficit - Expanded Neurological Exam Expanded Patient oriented to: Present: person, place, time Speech: Present: fluid speech Motor strength exam: RUE: 5, LUE: 5 Best Eye Response ([place]): (4) open spontaneously Best Motor Response (Anjel): (6) obeys commands Best Verbal Response (Anjel): (5) oriented [place] Total: 15 - Psychiatric Psychiatric exam: Present: normal affect, normal mood - Skin Skin exam: Present: warm, dry, intact, normal color. Absent: rash ED Course Vital Signs 07/16/20 04:48 Temperature 97.9 F Pulse Rate 107 H Respiratory 18 Rate Blood Pressure 123/75 O2 Sat by Pulse 96 Oximetry - Laceration /Wound Repair Left Posterior Proximal Finger Wound Location: upper extremity Wound Length (cm): 2 Wound's Depth, Shape: irregular Wound Explored: clean Irrigated w/ Saline (ccs): 50 Betadine Prep?: Yes Anesthesia: 1% Lidocaine Volume Anesthetic (ccs): 3 Wound Debrided: none required Wound Repaired With: sutures Suture Size/Type: 3:0, proline Number of Sutures: 4 Layer Closure?: No Sterile Dressing Applied?: Yes Progress: Left posterior index finger laceration at PIP joint, wound cleaned with Betadine solution, anesthesia with 1% lidocaine x3 cc digital block was achieved., Wound irrigated 50 cc of sterile saline, wound manually explored and visualized no foreign body range of motion is intact without restriction to direct confrontation, wound closed with 3-0 Prolene times 4 suture, minor abrasions cl osed with skin adhesive. 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 Patient given wound care instructions including follow-up with PCP in 2 to 3 days , and return the same and within 7 to 10 days for suture removal. Patient verbalized understanding of same. ED Medical Decision Making - Medical Decision Making Left posterior index finger 2 cm laceration repaired see suture note, patient given aftercare instructions including antibiotics NSAIDs as needed for pain and follow-up with PCP for wound check and suture removal was patient verbalized agreement and understanding with same. All bleeding is controlled. Range of motion remains intact. There is no tendon nerve or muscle damage. Patient DC'd home in stable condition at this time. Critical care attestation.: If time is entered above; I have spent that time in minutes in the direct care of this critically ill patient, excluding procedure time. ED Disposition Clinical Impression: Finger laceration Qualifiers: Encounter type: initial encounter Finger: index finger Damage to nail status: without damage Foreign body presence: without foreign body Laterality: left Qualified Code(s): S61.211A - Laceration without foreign body of left index finger without damage to nail, initial encounter Disposition: DC-01 TO HOME OR SELFCARE Is pt being admited?: No Does the pt Need Aspirin: No Condition: Stable Instructions: Laceration Care, Adult, Sutures, [place], or Adhesive Wound Closure, [id number] Prescriptions: Acetaminophen [Acetaminophen TAB] 1,000 mg PO Q6HR PRN #30 tablet PRN Reason: pain cephALEXin [Keflex] 500 mg PO Q8HR 7 Days #21 cap Referrals: VAISHALI GREEN MD [Staff Physician] - 3-5 Days Forms: Work/School Release Form(ED) Time of Disposition: 06:11
== END 2020-07-16 06:15 | disposition home or self-care (01) ==
LOC: ED 04:44
DX: S61.211A Laceration without foreign body of left index finger without damage to nail, initial encounter (principal); F25.0 Schizoaffective disorder, bipolar type; F17.200 Nicotine dependence, unspecified, uncomplicated; F12.90 Cannabis use, unspecified, uncomplicated; Z88.0 Allergy status to penicillin; Z88.6 Allergy status to analgesic agent; Z79.899 Other long term (current) drug therapy; W25.XXXA Contact with sharp glass, initial encounter; Y93.89 Activity, other specified; Y92.89 Other specified places as the place of occurrence of the external cause; Y99.8 Other external cause status

== ENCOUNTER 2020-08-03 00:54 | Emergency (ER) | payer SELFPAY ==
[2020-08-03 01:19] VITALS: BP 133/66
--- NOTE | 2020-08-03 01:47 | Emergency Department Report ---
Suture/Staple Removal - HPI Chief Complaint: Laceration/Recheck/Suture Stated Complaint: REMOVAL OF STITCHES Time Seen by Provider: 08/03/20 01:31 When Sutures or Jorge Placed: 07/16/2020 Wound Location: left index finger ED Review of Systems ROS: Stated complaint: REMOVAL OF STITCHES Other details as noted in HPI Comment: All other systems reviewed and negative ED Past Medical Hx - Past Medical History Previous Medical History?: Yes Hx Hypertension: No Hx CVA: No Hx Psychiatric Treatment: Yes (schizophrenia, Bipolar) - Surgical History Past Surgical History?: No - Social History Smoking Status: Current Every Day Smoker Substance Use Type: Marijuana - Medications Home Medications: Home Medications Medication Instructions Recorded Confirmed Last Taken Type OLANzapine [ZyPREXA] 5 mg PO QHS #10 tablet 12/21/19 Unknown Rx clonazePAM [KlonoPIN] 0.25 mg PO BID #14 tablet 12/21/19 Unknown Rx traZODone [Desyrel] 75 mg PO QHS #10 tablet 12/21/19 Unknown Rx Acetaminophen [Acetaminophen TAB] 1,000 mg PO Q6HR PRN #30 tablet 07/16/20 Unknown Rx cephALEXin [Keflex] 500 mg PO Q8HR 7 Days #21 cap 07/16/20 Unknown Rx Suture Removal Exam - Exam General: Vital signs noted. No distress. Alert and acting appropriately. Wound: No Pathologic Erythema, No Tenderness, No Drainage, No Pus, No Wound Dehiscence Other Systems: All other systems reviewed and are unremarkable. ED Course Vital Signs 08/03/20 01:17 Temperature 98.2 F Pulse Rate 64 Respiratory 16 Rate Blood Pressure 133/66 O2 Sat by Pulse 97 Oximetry ED Recheck MDM - Medical Decision Making Patient is a 25-year-old male presents emergency room for suture removal. He had the sutures placed at this facility on 07/16/2020. He denies any increasing pain, drainage, increasing swelling, redness, fever, vomiting. He has a past medical history of bipolar. He has multiple medication allergies which are charted in his records. On exam he has sutures present to the dorsal surface of the right index finger, it appears to be in the process of healing, there is some areas of scabbing, no erythema, no increased warmth, no drainage, no signs of induration or fluctuance, no significant wound dehiscence. All sutures removed without difficulty or complication, no drainage, no bleeding, no signs of significant wound dehiscence. Advised patient to please keep area clean, dry, covered. Continue to wash with antibacterial soap and water. No hot tub, no pool, no soaking in water. Please use triple antibiotic or Neosporin ointment. Follow-up with your primary care doctor. Return to emergency room for new or worsening symptoms. Critical care attestation.: If time is entered above; I have spent that time in minutes in the direct care of this critically ill patient, excluding procedure time. ED Disposition Clinical Impression: Visit for suture removal Disposition: - TO HOME OR SELFCARE Is pt being admited?: No Does the pt Need Aspirin: No Condition: Stable Instructions: Suture Removal, Care After Additional Instructions: please keep area clean, dry, covered. Continue to wash with antibacterial soap and water. No hot tub, no pool, no soaking in water. Please use triple antibiotic or Neosporin ointment. Follow-up with your primary care doctor. Return to emergency room for new or worsening symptoms. Referrals: JESSE GAFFNEY MD [Staff Physician] - 3-5 Days [facility] [Provider Group] - 3-5 Days Time of Disposition: 01:52 Print Language: SCOTTISH
== END 2020-08-03 01:57 | disposition home or self-care (01) ==
LOC: ED 00:54
DX: S61.211D Laceration without foreign body of left index finger without damage to nail, subsequent encounter (principal); F25.0 Schizoaffective disorder, bipolar type; F12.90 Cannabis use, unspecified, uncomplicated; F17.200 Nicotine dependence, unspecified, uncomplicated; Z79.899 Other long term (current) drug therapy; Z88.8 Allergy status to other drugs, medicaments and biological substances; X58.XXXD Exposure to other specified factors, subsequent encounter